=== PATIENT | male | born 1935 | race Caucasian/White ===

== ENCOUNTER → 2018-10-10 12:38 | Outpatient (CLI) | payer MEDICARE, BC, SELFPAY ==
--- NOTE | 2018-10-10 | DI.ECHO.S_ITS ---
[facility] +---------+ : : [address] : [address] [address] : : : : [id number] : : : : Phone: [phone]+ Echocardiogram Report + + :Name: RACHELLE ESTEVEZ Study Date: 10/10/2018 Height: 67 in : :[facility] Exam Location: [facility] Weight: 135 lb : : Gender: Male BSA: 1.7 m2 : :: 1935 Age: 83 yrs BP: 165/80 mmHg: :Reason For Study: Aortic valve regurgitation : :Ordering Physician: Brown : :Jess Performed By: Jane Page : + + Interpretation Summary Sinus bradycardia. Heart rate is 51-62 bpm. Normal LV size; mild-moderate concentric LVH; there is mid-inferolateral, mid inferior hypokinesis; otherwise normal wall motion throughout. EF is 55-60%. Stage I diastolic dysfunction. Moderate LA enlargement; borderline RA enlargement. Aortic valve leaflets are mildly calcified with moderate associated AI. There is mildly dilated aortic root and ascending aorta. Compared to prior study 12/20/2016 LV is no longer dilated. Otherwise no changes have occurred. Focal wall motion abnormalities are unchanged on personal review. Procedure: A two-dimensional transthoracic echocardiogram with color flow and Doppler was performed. The study quality was technically adequate. Comparison is made with the echocardiogram of 12/20/2016. The patient was in sinus bradycardia with heart rates between 51-62 bpm during the exam. The patient had occasional PVCs during the exam. Left Ventricle: There is mild-moderate concentric left ventricular hypertrophy. The left ventricle is mildly dilated. Proximal septal thickening is noted. The ejection fraction is estimated to be 55-60%. There is basal posterolateral wall hypokinesis. Diastolic parameters suggest a relaxation abnormality of the left ventricle, consistent with probable normal filling pressures. Right Ventricle: The right ventricle is mildly dilated. The right ventricular systolic function is normal. Atria: The left atrium is moderately dilated. The right atrium is borderline dilated. There is no Doppler evidence for an interatrial shunt. Mitral Valve: The mitral valve leaflets appear mildly thickened, but open well. There is mild mitral annular calcification. There is moderate mitral regurgitation. Aortic Valve: The aortic valve is trileaflet. The aortic valve is slightly calcified. The aortic valve opens well. There is moderate aortic regurgitation. Tricuspid Valve: The tricuspid valve is normal in structure and function. There is mild tricuspid regurgitation. The right ventricular systolic pressure is estimated to be at least 24 mmHg based on an estimated right atrial pressure of 3 mm Hg. Pulmonic Valve: The pulmonic valve is not well visualized. There is trace pulmonic regurgitation. Great Vessels: The aortic root is mildly dilated. The ascending aorta is mildly enlarged. The aortic arch is normal in size. The pulmonary artery is not well visualized, but is probably normal size. The IVC is of normal diameter and collapses greater than 50% with a sniff. This suggests a low right atrial pressure of 3 mm Hg. Pericardium/ Pleura There is a trivial pericardial effusion noted. There is no pleural effusion. MMode/2D Measurements & Calculations LVIDd: 5.1 cm LVOT diam: 2.4 cm LVIDs: 3.5 cm Ao root diam: 4.2 cm FS: 30.2 % asc Aorta Diam: 3.6 cm EPSS: 0.27 cm Ao Arch Diam (Prox Trans): 2.6 cm IVSd: 1.2 cm LVPWd: 1.2 cm LV shannon. diameter/BSA (cm/m^2): 3.0 LV sys. diameter/BSA (cm/m^2): 2.1 LA A2 area: 25.4 cm2 RA long axis: 5.9 cm LA A4 area: 23.0 cm2 RA area: 19.0 cm2 LA length (vol): 6.3 cm RA vol: 51.8 ml LA vol: 78.7 ml RA : 30.3 ml/m2 LA vol index: 46.0 ml/m2 Doppler Measurements & Calculations Ao V2 max: 159.2 cm/sec LVOT Max Elías: 99.1 cm/sec Ao V2 mean: 103.5 cm/sec LV V1 max P.9 mmHg Ao max P.1 mmHg LV V1 VTI: 21.4 cm Ao mean P.8 mmHg PAULETTE(I,D): 2.8 cm2 Ao V2 VTI: 33.3 cm PAULETTE(V,D): 2.7 cm2 sev ratio: 0.64 PAULETTE indexed to BSA (cm^2/m^2): 1.7 AI P1/2t: 442.9 msec AI dec slope: 346.6 cm/sec2 MV E max elías: 38.9 cm/sec TR max elías: 227.3 cm/sec MV A max elías: 68.0 cm/sec TR max P.7 mmHg MV E/A: 0.57 PA V2 max: 54.9 cm/sec Med Peak E' Elías: 2.8 cm/sec PA V2 mean: 35.1 cm/sec E/E' med: 14.0 PA mean P.56 mmHg Lat Peak E' Elías: 5.4 cm/sec E/E' lat: 7.3 E/e' average: 10.6 MV dec time: 0.15 sec MV P1/2t: 37.0 msec MV 2t max elías: 36.3 cm/sec MVA(2t): 6.0 cm2 Reading Physician:09:47 AM
== END ==
PROVIDERS: PCP Family Medicine; Visit Provider Internal Medicine Cardiovascular Disease
DX: I08.3 Combined rheumatic disorders of mitral, aortic and tricuspid valves (principal); R00.1 Bradycardia, unspecified
CPT/HCPCS: 93306

== ENCOUNTER → 2019-06-22 10:06 | Outpatient (CLI) | payer MEDICARE, BC, SELFPAY ==
--- NOTE | 2019-06-22 10:12 | DI.RAD.S_ITS ---
PROCEDURE: FL BARIUM SWALLOW INDICATIONS: esophageal spasm, regurgitating food COMPARISON: [facility], , CHEST 1 VIEW, 05/27/2016, 17:20. FINDINGS: Function: There is esophageal dysmotility with tertiary contractions and proximal escape. There is marked esophageal reflux to the level of the epiglottis. Laryngeal penetration and diana tracheal aspiration were identified. There is obstructed transit of a calibrated barium tablet which does not pass into the stomach after prolonged observation, remaining lodged within the distal esophagus/small hiatal hernia. Morphology: Air-contrast images demonstrate normal mucosal morphology. No diverticula identified. There is narrowing of the distal esophagus near the gastroesophageal junction, forming partial beaking. Limited images of the stomach demonstrate normal appearance. IMPRESSION: 1. Narrowing of the distal esophagus with obstructed transit of a calibrated barium tablet into the greater stomach (with the tablet persistently lodged within the distal esophagus/small hiatal hernia for the duration of the exam). Findings are concerning for potential achalasia or stricture. Direct observation with endoscopy may be of benefit. 2. Esophageal dysmotility with gastroesophageal reflux and a small hiatal hernia. 3. Tracheal aspiration observed with multiple swallows. Consider followup evaluation with speech pathology consultation. Dictated by: Doroteo Ramos M.D. on 06/22/2019 at 12:43 Approved by: Doroteo Ramos M.D. on 06/22/2019 at 13:08
== END ==
PROVIDERS: PCP Family Medicine; Visit Provider Family Medicine
DX: K22.4 Dyskinesia of esophagus (principal); R11.10 Vomiting, unspecified; K44.9 Diaphragmatic hernia without obstruction or gangrene
CPT/HCPCS: 74220

== ENCOUNTER → 2019-09-18 07:28 | Outpatient (CLI) | payer MEDICARE, BC, SELFPAY ==
[2019-09-18 08:12] LABS: Add Manual Diff / Slide Review NO; Basophils Absolute Auto 0 /uL (0-100); Basophils Percent Auto 0.5 % (0-2); Eosinophils Absolute Auto 100 /uL (0-450); Eosinophils Percent Auto 1.1 % (2-4); Hematocrit 43.5 % (41-53); Lymphocytes Absolute Auto 1600 /uL (1100-4500); Lymphocytes Percent Auto 33.4 % (25-40); Mean Corpuscular HGB Conc 34.5 % (30-36); Mean Corpuscular Hemoglobin 32.7 PG (26-34); Monocytes Absolute Auto 400 /uL (0-900); Neutrophils Absolute Auto 2700 /uL (1500-7000); Platelet Count 163 X10^3/uL (150-400); Red Blood Cell Count 4.57 X10^6/uL (4.5-5.9); Red Cell Distribution Width 12.7 % (11.6-14.8); White Blood Cell Count 4.8 X10^3/uL (4.5-11.0)
[2019-09-18 08:42] LABS: Alanine Aminotransferase 16 IU/L (<50); Albumin 3.9 g/dL (3.5-5.0); Albumin Globulin Ratio 1.6 (1.0-2.8); Alkaline Phosphatase 92 U/L (38-126); Aspartate Aminotransferase 27 IU/L (17-59); BUN Creatinine Ratio 18.9 (6-22); Bilirubin Total 0.8 mg/dL (0.2-1.3); Blood Urea Nitrogen 17 mg/dL (9-20); Calcium 9.4 mg/dL (8.4-10.2); Carbon Dioxide 30 mmol/L (22-32); Chloride 104 mmol/L (98-107); Cholesterol 149 mg/dL (140-199); Estimated Glomerular Filt Rate > 60.0 mL/min (>60); Globulin 2.4 g/dL (1.7-4.1); Glucose 91 mg/dL (80-110); HDL Cholesterol 84 mg/dL (40-60); HEMOLYSIS < 15 (0-50); LDL Cholesterol Calculated 49 mg/dL (<100); Potassium 4.3 mmol/L (3.4-5.1); Sodium 140 mmol/L (137-145); Total Protein 6.3 g/dL (6.3-8.2); Triglycerides 80 mg/dL (35-150)
== END ==
PROVIDERS: PCP Family Medicine; Visit Provider Family Medicine
DX: I10 Essential (primary) hypertension (principal)
CPT/HCPCS: 36415; 80053; 80061; 85025

== ENCOUNTER 2019-10-20 06:57 | Day surgery (SDC) | payer MEDICARE, BC, SELFPAY ==
[2019-10-20] MEDS: PROPARACAINE 0.5% OPHTH SOL 2 DROPS EYE-OP (07:37)
[2019-10-20 07:38] VITALS: BP 171/82; PULSE 71; RESP 15; TEMP 36.6; O2SAT 99; BMI 21.8
[2019-10-20] MEDS: CATARACT EYE COMPOUND (10 DROPS/SYRINGE) 3 DROPS EYE-OP (07:48)
--- NOTE | 2019-10-20 08:08 | PM.PREOP ---
Pre-operative Note Interval Note History & Physical reviewed/Exam performed by Physician: No Changes to H&P: No
--- NOTE | 2019-10-20 08:08 | PM.OP.1 ---
Operative Date/Time/Diagnoses Pre-op diagnosis: Nuclear cataract right eye Procedure & Clinicians Procedure: Cataract Surgery Same procedure as scheduled: Yes Surgeon: Bryon Cardona Anesthesia Type: MAC +/- and Sedation Operative Notes Procedure in detail: Patient brought to the operating suite. Tetracaine drops placed in the right eye. Patient was prepped and draped in sterile manner. Wire lid speculum was placed in the eye. Betadine drops were placed on the eye. This was irrigated. Lidocaine jelly was placed on the eye. A paracentesis port was created with a side-port blade. 0.1 mL 1% preservative free lidocaine was injected into the anterior chamber. The anterior chamber was deepened with viscoelastic. 2.6 mm keratome was used to create a temporal clear corneal incision. The pupil was floppy and miotic. A 6.25 mm malyugin ring was used to enlarge the pupil. Cystotome and Utrata forceps were used to create continuous tear capsulorrhexis. Balanced salt solution was used to hydro dissect the nucleus. The phacoemulsification handpiece was inserted and the nucleus was removed using the stop and chop technique. The irrigation aspiration handpiece was inserted and the remaining cortex was removed. Anterior chamber was deepened with viscoelastic. An Garcia ZCB00 intraocular lens with a power of 21.5 was injected into the capsular bag. The Malyugin ring was removed. Irrigation aspiration handpiece was inserted and the remaining viscoelastic was removed. Incision was hydrated with balanced salt solution and found to be leak free with pressure with Weck-Amber sponges. 0.1 mL Vigamox injected anterior chamber. 0.3 mL Kenalog 10 mg was injected subconjunctivally. Lid speculum was removed. The patient left the operating room in excellent condition. Complications: none Post-operative Condition: stable Disposition: same day surgery
[2019-10-20] MEDS: MOXIFLOXACIN INJ 5 MG/ML VIAL EYE-OP (08:33)
[2019-10-20] MEDS: PHENYLEPHRINE/LIDOCAINE VIAL (OR) 0.2 ML EYE-OP (08:33)
[2019-10-20] MEDS: TRIAMCINOLONE 50 MG/5 ML VIAL INJ (08:33)
[2019-10-20] MEDS: CHONDROIDTIN/SOD HYALURONATE 1.05 ML SYRINGE INTRAOCULA (08:34)
[2019-10-20] MEDS: LIDOCAINE JELLY 2% 5 ML 1 APPLIC TOP (08:34)
[2019-10-20] MEDS: TETRACAINE 0.5% OPHTH DROPS 4 ML 2 DROPS EYE-OP (08:34)
[2019-10-20] MEDS: BALANCED SALT IRRIG SOLN NO.2 500 ML, EPINEPHrine 1 MG IRR (08:35)
[2019-10-20 08:52] VITALS: BP 153/71; PULSE 60; RESP 16; TEMP 36.8; O2SAT 99
== END 2019-10-20 08:30 | disposition home or self-care (01) ==
PROVIDERS: PCP Family Medicine; Visit Provider Ophthalmology
PROC: (CPT 66984; principal; 2019-10-20 08:15)
DX: H25.11 Age-related nuclear cataract, right eye (principal); E78.5 Hyperlipidemia, unspecified; I25.2 Old myocardial infarction
CPT/HCPCS: 66984; J0171; J2250; J3301

== ENCOUNTER 2019-11-03 06:58 | Day surgery (SDC) | payer MEDICARE, BC, SELFPAY ==
[2019-11-03 07:42] VITALS: BP 151/74; PULSE 73; RESP 15; TEMP 36.4; O2SAT 99; BMI 21.7
[2019-11-03] MEDS: CATARACT EYE COMPOUND (10 DROPS/SYRINGE) 3 DROPS EYE-OP (07:51)
[2019-11-03] MEDS: PROPARACAINE 0.5% OPHTH SOL 2 DROPS EYE-OP (07:51)
--- NOTE | 2019-11-03 08:29 | PM.PREOP ---
Pre-operative Note Interval Note History & Physical reviewed/Exam performed by Physician: No Changes to H&P: No
--- NOTE | 2019-11-03 08:29 | PM.OP.1 ---
Operative Date/Time/Diagnoses Pre-op diagnosis: Nuclear Cataract Left eye Post-op diagnosis: same Procedure & Clinicians Surgeon: Bryon Cardona Anesthesia Type: MAC +/- and Sedation Operative Notes Procedure in detail: Patient brought to the operating suite. Tetracaine drops placed in the left eye. Patient was prepped and draped in sterile manner. Wire lid speculum was placed in the eye. Betadine drops were placed on the eye. This was irrigated. Lidocaine jelly was placed on the eye. A paracentesis port was created with a side-port blade. 0.1 mL 1% preservative free lidocaine was injected into the anterior chamber. The anterior chamber was deepened with viscoelastic. 2.6 mm keratome was used to create a temporal clear corneal incision. The pupil was floppy and miotic. A 6.25 mm Malygin ring was used to enlarge the pupil. Cystotome and Utrata forceps were used to create continuous tear capsulorrhexis. Balanced salt solution was used to hydro dissect the nucleus. The phacoemulsification handpiece was inserted and the nucleus was removed using the stop and chop technique. The irrigation aspiration handpiece was inserted and the remaining cortex was removed. Anterior chamber was deepened with viscoelastic. An Garcia ZCB00 intraocular lens with a power of 21.5 was injected into the capsular bag. The Malyugin ring was removed. Irrigation aspiration handpiece was inserted and the remaining viscoelastic was removed. Incision was hydrated with balanced salt solution and found to be leak free with pressure with Weck-Amber sponges. 0.1 mL Vigamox injected anterior chamber. 0.3 mL Kenalog 10 mg was injected subconjunctivally. Lid speculum was removed. The patient left the operating room in excellent condition. Complications: none Post-operative Condition: stable Disposition: same day surgery
[2019-11-03] MEDS: MOXIFLOXACIN INJ 5 MG/ML VIAL EYE-OP (08:41)
[2019-11-03] MEDS: LIDOCAINE JELLY 2% 5 ML 1 APPLIC TOP (08:42)
[2019-11-03] MEDS: TRIAMCINOLONE 50 MG/5 ML VIAL INJ (08:42)
[2019-11-03] MEDS: BALANCED SALT IRRIG SOLN NO.2 500 ML, EPINEPHrine 1 MG IRR (08:42)
[2019-11-03] MEDS: PHENYLEPHRINE/LIDOCAINE VIAL (OR) 0.2 ML EYE-OP (08:42)
[2019-11-03] MEDS: CHONDROIDTIN/SOD HYALURONATE 1.05 ML SYRINGE INTRAOCULA (08:43)
[2019-11-03] MEDS: TETRACAINE 0.5% OPHTH DROPS 4 ML 2 DROPS EYE-OP (08:43)
[2019-11-03 09:07] VITALS: BP 114/64; PULSE 69; RESP 15; TEMP 36.2; O2SAT 96
== END 2019-11-03 09:10 | disposition home or self-care (01) ==
PROVIDERS: PCP Family Medicine; Visit Provider Ophthalmology
PROC: (CPT 66984; principal; 2019-11-03 08:45)
DX: H25.12 Age-related nuclear cataract, left eye (principal)
CPT/HCPCS: 66984; J0171; J2250; J3301

== ENCOUNTER → 2020-07-16 13:55 | Outpatient (CLI) | payer MEDICARE, BC, SELFPAY ==
[2020-07-17 06:12] LABS: COVID19 Sendout Not Detected (Not Detect)
== END ==
PROVIDERS: PCP Family Medicine; Visit Provider Physician Assistant
DX: Z11.59 Encounter for screening for other viral diseases (principal)
CPT/HCPCS: 87635

== ENCOUNTER → 2020-07-24 09:47 | Outpatient (CLI) | payer MEDICARE, BC, SELFPAY ==
[2020-07-26 15:46] LABS: COVID19 Sendout Not Detected (Not Detect)
== END ==
PROVIDERS: PCP Family Medicine; Visit Provider Physician Assistant
DX: Z11.59 Encounter for screening for other viral diseases (principal)
CPT/HCPCS: 87635

== ENCOUNTER 2020-07-27 09:23 | Day surgery (SDC) | payer MEDICARE, BC, SELFPAY ==
[2020-07-27] VITALS (10 sets, daily range): BP systolic 103–155; BP diastolic 65–82; PULSE 61–77; RESP 12–17; TEMP 36.3–36.9; O2SAT 91–99; BMI 21.9
--- NOTE | 2020-07-27 | PATH_ITS ---
[facility] Accession Number: [id number] . 01 Material submitted: . gastrointestinal site - GASTRIC . 01 Clinical history: . A: RULE OUT HP BIOPSY GASTRIC . 01 Diagnosis: Stomach, Biopsies: Gastric antral and body mucosa with mild chronic inflammation. Negative for Helicobacter organisms by immunohistochemistry. Negative for intestinal metaplasia. Negative for dysplasia or malignancy. V 08/01/2020 1352 Local . 01 Electronically signed: . Arie Marroquin MD, PhD, Pathologist NPI- [id number] . 01 Gross description: . Received in formalin, labeled rule out HP biopsy gastric, and consists of two sauer fragments of soft tissue measuring 0.5 x 0.5 x 0.2 cm in aggregate. The specimen is entirely submitted in cassette A1. (EA/[id number]) /[facility] 07/28/2020 1046 Local . 01 Microscopic: . An immunohistochemical stain was performed to evaluate for Helicobacter organisms and is negative. The control stain showed appropriate reactivity. . * This test was developed and its performance characteristics determined by [facility]. It has not been cleared or approved by the U.S. Food and Drug Administration. The FDA has determined that such clearance or approval is not necessary. This test is used for clinical purposes. It should not be regarded as investigational or for research. . 01 Pathologist provided ICD-10: K29.70 . 01 CPT . 690311, L46339 Performed at: [address] [address], [place], [place] [id number] MD Leonel Kang MD Phone: [phone]
[2020-07-27] MEDS: SODIUM CHLORIDE 0.9% 1,000 ML 21 ML IV (10:00)
[2020-07-27] MEDS: fentaNYL 250 MCG/5 ML INJ IV (10:33)
[2020-07-27] MEDS: MIDAZOLAM 5 MG/5 ML VIAL IV (10:39)
--- NOTE | 2020-07-27 10:45 | PM.HP.1 ---
History of Present Illness History of Present Illness Date Patient Seen: 07/27/20 Chief complaint: SDC Narrative: Lower substernal dysphagia with abnormal barium swallow showing possible dilated esophagus and difficulty passing barium at the GE junction. Esophageal manometry could not pass the lower esophageal sphincter but did show 100% peristalsis ruling out achalasia. Procedure being done to rule out Schatzki's ring or stricture versus EGJ outflow obstruction which still could be present with normal peristalsis. Dilation to be performed if appropriate or Botox injection if felt to be outflow obstruction. Patient History Medical History (Updated 07/06/20 @ 09:37 by Adelaide Martinez RN) Actinic keratosis (Resolved ~1979) Chronic back pain (Chronic) Elevated PSA (Resolved 1996) GI bleeding (Chronic 1999) Heart disease (Acute) Hypertension (Chronic 1998) Measles (Resolved) Melanoma (Resolved 2011) Migraines (Chronic 1989) Prostate cancer (Resolved 1996) Surgical History (Updated 07/06/20 @ 09:37 by Adelaide Martinez RN) Anesthesia (Resolved) History of melanoma excision (Resolved 2011) History of prostate surgery (Resolved 1996) Hx of cataract surgery (Acute) Status post hernia repair (Resolved 1995) Status post hernia repair (Resolved 2004) Family & Social History Family History (Updated 08/07/18 @ 12:04 by Francesca Dawn) Brother Age: 80 Parkinson's disease Father Parkinson's disease Mother Aneurysm Social History: household members significant other Tobacco & Substance use: Smoking Status Never smoker alcohol intake current alcohol intake frequency 0-2 drinks per day Substance Use Type does not use Meds Home Medications and Allergies Home Medications Medication Instructions Recorded Confirmed Type aspirin 81 mg PO QDAY #30 ctb 06/13/16 07/27/20 History multivitamin [Multiple Vitamins] 1 tab PO QDAY #0 tab 06/13/16 07/27/20 History biotin 5,000 mcg disintegrating 5,000 mcg PO DAILY tab 09/02/19 07/27/20 History tablet cholecalciferol (vitamin D3) 50 2,000 unit PO DAILY 09/02/19 07/27/20 History mcg (2,000 unit) capsule naproxen sodium 220 mg capsule 220 mg PO DAILY PRN cap 09/02/19 07/27/20 History rosuvastatin 10 mg tablet 10 mg PO DAILY #90 tab 09/02/19 07/27/20 Rx hydrochlorothiazide 25 mg tablet 25 mg PO DAILY #90 tab 02/02/20 07/27/20 Rx Allergies Allergy/AdvReac Type Severity Reaction Status Date / Time No Known Drug Allergies Allergy Verified 07/27/20 09:38 Exam Vital Signs (past 8 hours): - 07/27/20 09:40 Temperature 98.3 F Pulse Rate 77 Respiratory Rate 16 Blood Pressure 155/82 H Pulse Oximetry 99 Oxygen Delivery Method Room Air Narrative Exam Narrative: Oropharynx free of lesions Chest clear to auscultation percussion Cardiac exam reveals no S3 or murmur Assessment & Plan Assessment & Plan narrative: Abnormal barium swallow with need to assess GE junction with possible Botox or dilation. Risks, benefits, and alternatives have been explained.
--- NOTE | 2020-07-27 10:48 | P.HP_ITS ---
History of Present Illness History of Present Illness Chief complaint: [facility] [place] Narrative: Lower substernal dysphagia with abnormal barium swallow showing possible dilated esophagus and difficulty passing barium at the GE junction. Esophageal manometry could not pass the lower esophageal sphincter but did show 100% peristalsis ruling out achalasia. Procedure being done to rule out Schatzki's ring or stricture versus EGJ outflow obstruction which still could be present with normal peristalsis. Dilation to be performed if appropriate or Botox injection if felt to be outflow obstruction. Patient History Medical History (Updated 07/06/20 @ 09:37 by Adelaide Martinez RN) Actinic keratosis (Resolved ~1979) Chronic back pain (Chronic) Elevated PSA (Resolved 1996) GI bleeding (Chronic 1999) Heart disease (Acute) Hypertension (Chronic 1998) Measles (Resolved) Melanoma (Resolved 2011) Migraines (Chronic 1989) Prostate cancer (Resolved 1996) Surgical History (Updated 07/06/20 @ 09:37 by Adelaide Martinez RN) Anesthesia (Resolved) History of melanoma excision (Resolved 2011) History of prostate surgery (Resolved 1996) Hx of cataract surgery (Acute) Status post hernia repair (Resolved 1995) Status post hernia repair (Resolved 2004) Family & Social History Family History (Updated 08/07/18 @ 12:04 by Francesca Dawn) Brother Age: 80 Parkinson's disease Father Parkinson's disease Mother Aneurysm Social History: household members significant other Tobacco & Substance use: Smoking Status Never smoker alcohol intake current alcohol intake frequency 0-2 drinks per day Substance Use Type does not use Meds Home Medications and Allergies Home Medications Medication Instructions Recorded Confirmed Type aspirin 81 mg PO QDAY #30 ctb 06/13/16 07/27/20 History multivitamin [Multiple Vitamins] 1 tab PO QDAY #0 tab 06/13/16 07/27/20 History biotin 5,000 mcg disintegrating 5,000 mcg PO DAILY tab 09/02/19 07/27/20 History tablet cholecalciferol (vitamin D3) 50 2,000 unit PO DAILY 09/02/19 07/27/20 History mcg (2,000 unit) capsule naproxen sodium 220 mg capsule 220 mg PO DAILY PRN cap 09/02/19 07/27/20 History rosuvastatin 10 mg tablet 10 mg PO DAILY #90 tab 09/02/19 07/27/20 Rx hydrochlorothiazide 25 mg tablet 25 mg PO DAILY #90 tab 02/02/20 07/27/20 Rx Allergies Allergy/AdvReac Type Severity Reaction Status Date / Time No Known Drug Allergies Allergy Verified 07/27/20 09:38 Exam Vital Signs (past 8 hours): - 07/27/20 09:40 Temperature 98.3 F Pulse Rate 77 Respiratory Rate 16 Blood Pressure 155/82 H Pulse Oximetry 99 Oxygen Delivery Method Room Air
--- NOTE | 2020-07-27 10:48 | PM.OP.ENDO ---
Operative Date/Time/Diagnoses Date of procedure: 07/27/20 Pre-op diagnosis: See indication and findings Procedure & Clinicians Study performed: EGD Same procedure as scheduled: Yes Indications: Lower substernal dysphagia with abnormal barium swallow showing possible dilated esophagus and difficulty passing barium at the GE junction. Esophageal manometry could not pass the lower esophageal sphincter but did show 100% peristalsis ruling out achalasia. Procedure being done to rule out Schatzki's ring or stricture versus EGJ outflow obstruction which still could be present with normal peristalsis. Dilation to be performed if appropriate or Botox injection if felt to be outflow obstruction. Surgeon: Gail Muñoz Procedure Notes Procedure in detail: After informed consent was obtained the patient was placed in the left lateral decubitus position. The video upper scope was placed into the oropharynx and with the patient's help swallowed into the esophagus. The esophagus stomach and duodenum were carefully examined. On withdrawal, retroflexed view of the GE junction was performed. The scope was removed. The patient tolerated procedure well. Blood loss none Complications none Sedation Total sedation time 11 minutes Fentanyl 100 mg Versed 6 mg IV titration Findings 1. GE junction with moderate Schatzki's ring present. This was he both on forward viewing and retroflexed view. There was at least 3-4 mm of space between the edge of the Schatzki's ring and the scope. On withdrawal a 48 Savary dilator was used with only minimal resistance. 2. 3 cm hiatal hernia 3. Striped gastric erythema in the antrum biopsies taken to rule out Helicobacter 4. Scattered patches of erythema throughout the duodenal bulb I think all of Mr. Slade's problems are from this Schatzki's ring. He is to be in touch with me in 2 months to let me know how he is doing. We could go up to a somewhat larger size either 51/54 should he continue have problems.
== END 2020-07-27 12:20 | disposition home or self-care (01) ==
PROVIDERS: PCP Family Medicine; Referring Provider Family Medicine; Visit Provider Internal Medicine Gastroenterology
PROC: 0DJ08ZZ Inspection of Upper Intestinal Tract, Via Natural or Artificial Opening Endoscopic (ICD-10-PCS; CPT 43235; principal; 2020-07-27 10:30)
DX: K29.50 Unspecified chronic gastritis without bleeding (principal); K22.2 Esophageal obstruction; K44.9 Diaphragmatic hernia without obstruction or gangrene; I10 Essential (primary) hypertension
CPT/HCPCS: 43248; 43239; J2250; J3010

== ENCOUNTER → 2020-08-01 13:33 | Outpatient (CLI) | payer MEDICARE, BC, SELFPAY ==
--- NOTE | 2020-08-01 13:52 | DI.ECHO.S_ITS ---
Echocardiogram Report + + :Name: RACHELLE ESTEVEZ Study Date: 08/01/2020 Height: 66 in : :[facility] Weight: 140 lb : : Gender: Male BSA: 1.7 m2 : :: 1935 Age: 85 yrs BP: 152/88 mmHg: :Reason For Study: DYSPNEA : :Ordering Physician: ROYER, : :RUBÉN Performed By: Negra Dotson : :Referring: RUBÉN LINTON : + + Interpretation Summary Normal sinus rhythm. Normal LV size; mild concentric LVH. There is basal inferolateral akinesis; mid-inferolateral and mid-inferior hypokinesis. Otherwise normal wall motion and LV systolic function. EF is 50-55%. Normal chamber sizes. Aortic valve leaflets are mildly calcified with moderate eccentric associated AI. Pressure half time is 350 msec. Otherwise no significatn valvular abnormalities. Comapred to prior study 10/10/2018 focal wall motion abnormalities in PDA distribution are unchanged. AI is slightly worse Procedure: A two-dimensional transthoracic echocardiogram with color flow and Doppler was performed. The study quality was technically adequate. Comparison is made with the echocardiogram of 10/10/2018. The heart rate ranged between 64-73 bpm during the study. Left Ventricle: The left ventricle is normal in size. There is mild concentric left ventricular hypertrophy. The ejection fraction is estimated to be 50-55%. Diastolic function could not be accurately assessed due to unobtainable data. Right Ventricle: The right ventricle is normal in size and function. Atria: Both atria are normal in size. There is no Doppler evidence for an interatrial shunt. Mitral Valve: The mitral valve is normal in structure and function. There is mild mitral regurgitation. Aortic Valve: The aortic valve is trileaflet. The aortic valve opens well. The aortic valve is slightly calcified. There is no aortic valve stenosis. There is moderate aortic regurgitation. Tricuspid Valve: The tricuspid valve is normal in structure and function. The right ventricular systolic pressure is estimated to be at least 27 mmHg based on an estimated right atrial pressure of 3 mm Hg. There is mild tricuspid regurgitation. Pulmonic Valve: The pulmonic valve leaflets are thin and pliable; valve motion is normal. There is mild pulmonic regurgitation. Great Vessels: The aortic root is normal size. The ascending aorta is mildly enlarged. The IVC is of normal diameter and collapses greater than 50% with a sniff. This suggests a low right atrial pressure of 3 mm Hg. Pericardium/ Pleura There is no pericardial effusion. There is no pleural effusion. MMode/2D Measurements & Calculations LVIDd: 5.3 cm LVOT diam: 2.2 cm LVIDs: 3.9 cm Ao root diam: 3.8 cm FS: 26.0 % asc Aorta Diam: 3.9 cm EPSS: 0.92 cm Ao Arch Diam (Prox Trans): 2.5 cm IVSd: 1.2 cm LVPWd: 1.0 cm LV shannon. diameter/BSA (cm/m^2): 3.1 LV sys. diameter/BSA (cm/m^2): 2.3 LA A2 area: 17.5 cm2 RA long axis: 5.1 cm LA A4 area: 16.2 cm2 RA area: 13.6 cm2 LA length (vol): 5.5 cm RA vol: 30.5 ml LA vol: 43.4 ml RA : 17.7 ml/m2 LA vol index: 25.2 ml/m2 IVC diam: 1.2 cm RVD1 (basal): 2.7 cm TAPSE: 1.8 cm Doppler Measurements & Calculations Ao V2 max: 172.4 cm/sec LVOT Max Elías: 118.3 cm/sec Ao V2 mean: 104.4 cm/sec LV V1 max P.6 mmHg Ao max P.9 mmHg LV V1 VTI: 20.7 cm Ao mean P.2 mmHg PAULETTE(I,D): 2.8 cm2 Ao V2 VTI: 28.6 cm PAULETTE(V,D): 2.7 cm2 sev ratio: 0.72 PAULETTE indexed to BSA (cm^2/m^2): 1.6 Med Peak E' Elías: 2.8 cm/sec TR max elías: 245.8 cm/sec Lat Peak E' Elías: 3.2 cm/sec TR max P.4 mmHg PA pr(Accel): 25.9 mmHg SV(LVOT): 80.4 ml Electronically signed by: Lani Navas M.D. on Reading Physician:08/03/2020 01:14 AM
== END ==
PROVIDERS: PCP Family Medicine; Referring Provider Family Medicine; Visit Provider Hospitalist
DX: I08.3 Combined rheumatic disorders of mitral, aortic and tricuspid valves (principal); I77.89 Other specified disorders of arteries and arterioles; R06.09 Other forms of dyspnea
CPT/HCPCS: 93306

== ENCOUNTER 2020-08-02 13:41 | Emergency (ER) | payer MEDICARE, BC, SELFPAY ==
[2020-08-02 13:43] VITALS: BP 155/71; PULSE 95; RESP 20; TEMP 37.1; O2SAT 98
--- NOTE | 2020-08-02 16:14 | DI.RAD.S_ITS ---
PROCEDURE: XR LUMBAR SPINE 2-3V INDICATIONS: low back pain bilateral TECHNIQUE: 3 views of the lumbar spine were acquired. COMPARISON: None. FINDINGS: Bones: No fracture. Multilevel degenerative endplate sclerosis and spurring. Diffuse facet arthropathy. Moderate to severe L2-L3 disc space narrowing. Severe L1-L2 disc space narrowing. Severe lower thoracic disc space narrowing. Levoscoliosis partially visualized. Soft tissues: Overlying bowel gas pattern is normal. No suspicious soft tissue calcifications. 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 Dictated by: Kael Meza M.D. on 08/02/2020 at 17:04 Approved by: Kael Meza M.D. on 08/02/2020 at 17:05
[2020-08-02] MEDS: LIDOCAINE PATCH 1 EACH ADH..PATCH TOP (16:27)
[2020-08-02] MEDS: ACETAMINOPHEN 325 MG TABLET 650 MG PO (16:28)
[2020-08-02] MEDS: CYCLOBENZAPRINE 10 MG TABLET PO (16:28)
[2020-08-02] MEDS: IBUPROFEN 400 MG TABLET PO (16:28)
[2020-08-02 17:04] VITALS: BP 139/74; PULSE 88; RESP 16; O2SAT 98
--- NOTE | 2020-08-03 01:51 | ED.BACK ---
HPI - Back Pain/Injury <YONATAN Jordan - Last Filed: 08/03/20 02:09> General Chief Complaint: Back Pain/Injury Stated Complaint: LOW BACK PAIN Time Seen by Provider: 08/02/20 15:22 Source: patient Mode of arrival: Wheelchair Limitations: no limitations History of Present Illness HPI Narrative: This is a 85-year-old male, nonsmoker, who has history of hypertension and hyperlipidemia and back pain presents to ED with significant other with chief complain of bilateral low back pain. Patient reports he had manometry test done for esophageal spasm on 07/19/2020 that was followed by endoscopy on 07/27/20 and echocardiogram done yesterday. Patient reports after the endoscopy, he had left rib cage discomfort radiating to back and he had taken Tylenol and Advil for it with some improvement. Since last night the developed severe bilateral low back pain. Patient had back pain in the past and had physical therapy. Patient reports he is usually very active. Patient denies fever, nausea or vomiting but some chills with pain. Patient denies chest pain, short of breath, incontinence for stools or bladder, perineal numbness. Patient reports pain increases with movement, ambulation, rotation of his upper body. Patient had taken Tylenol 500 mg last dose this morning and 200 mg Advil yesterday. Related Data Home Medications Medication Instructions Recorded Confirmed aspirin 81 mg PO QDAY #30 ctb 06/13/16 07/27/20 multivitamin [Multiple Vitamins] 1 tab PO QDAY #0 tab 06/13/16 07/27/20 biotin 5,000 mcg disintegrating 5,000 mcg PO DAILY tab 09/02/19 07/27/20 tablet cholecalciferol (vitamin D3) 50 2,000 unit PO DAILY 09/02/19 07/27/20 mcg (2,000 unit) capsule naproxen sodium 220 mg capsule 220 mg PO DAILY PRN cap 09/02/19 07/27/20 Previous Rx's Medication Instructions Recorded rosuvastatin 10 mg tablet 10 mg PO DAILY #90 tab 09/02/19 hydrochlorothiazide 25 mg tablet 25 mg PO DAILY #90 tab 02/02/20 cyclobenzaprine 10 mg PO BID PRN #14 tab 08/02/20 hydrocodone-acetaminophen [[place]] 1 tab PO Q8H PRN #10 tab 08/02/20 lidocaine 1 patch TOP DAILY #30 each 08/02/20 Allergies Allergy/AdvReac Type Severity Reaction Status Date / Time No Known Drug Allergies Allergy Verified 08/02/20 13:48 Review of Systems <YONATAN Jordan - Last Filed: 08/03/20 02:09> Review of Systems Narrative: General: Denies fever, chills, fatigue, malaise, sweats. HEENT: Denies sinus pain, ear pain, sore throat, difficulty swallowing, dizziness. Respiratory: Denies dyspnea, cough, wheezing, hemoptysis, sputum. Cardiovascular: Denies chest pain, palpitations, orthopnea, edema. Gastrointestinal: Denies nausea, vomiting, abdominal pain, diarrhea, constipation, melena. : Denies dysuria, frequency, incontinence, hematuria, urinary retention. Musculoskeletal: See HPI Skin: Denies rash, skin lesions, or other. Neurologic: Denies weakness, headache, numbness, change in speech, confusion, seizures, incoordination. Psychiatric: No concerning psychosocial issues. 12-point review of systems is negative except for those stated above. Patient History <YONATAN Jordan - Last Filed: 08/03/20 02:09> Medical History Actinic keratosis (Resolved ~1979) Chronic back pain (Chronic) Elevated PSA (Resolved 1996) GI bleeding (Chronic 1999) Heart disease (Acute) Hypertension (Chronic 1998) Measles (Resolved) Melanoma (Resolved 2011) Migraines (Chronic 1989) Prostate cancer (Resolved 1996) Surgical History Anesthesia (Resolved) History of melanoma excision (Resolved 2011) History of prostate surgery (Resolved 1996) Hx of cataract surgery (Acute) Status post hernia repair (Resolved 1995) Status post hernia repair (Resolved 2004) Family History Brother Age: 80 Parkinson's disease Father Parkinson's disease Mother Aneurysm Social History marital status: unknown household members: significant other occupational status: previously employed Smoking Status: Never smoker alcohol intake: current substance use type: does not use Smoking Status: Never smoker alcohol intake frequency: 0-2 drinks per day Substance Use Type: does not use Exam <YONATAN Jordan - Last Filed: 08/03/20 02:09> Narrative Exam Narrative: GEN: Alert, oriented x 3, well appearing and nourished, and in moderate discomfort Head: Normal cephalic, atraumatic. No scalp or temporal tenderness, palpable mass or rash. EYES: Pupils are equal, round, and reactive to light and accommodation. Extraocular muscles are intact bilaterally. There is no subconjunctival hemorrhage, exudate and sclera non-icteric. ENT: Hearing grossly intact. Nose without bleeding, purulent discharge. Airway patent. Neck: Trachea in midline. No JVD, non-tender without lymphadenopathy. No masses or thyroid megaly. Supple, non-tender and no meningeal signs. CARDIAC: Normal regular rate and rhythm without murmurs, gallops, or rubs. No chest wall tenderness. No peripheral edema, cyanosis or pallor. Capillary refill is less than 2 seconds. RESPIRATORY: Lungs are clear to auscultate bilaterally. No cough, wheezes, rales, or rhonchi. No stridor, respiratory distress, increase work of breathing, or accessary muscle used. ABD: Abdomen soft, nontender and non-distended. No guarding or rebound tenderness to palpate. Bowel sounds are normal in all 4 quadrants. There is no palpable masses or organomegaly. EXT: Full painless ROM of all extremities with no loss of sensation, strength, effusion or edema. SKIN: Warm, dry, normal color for patient. No erythema, lesions or rash on the back or over other visible areas NEUROLOGICAL: Alert and oriented to place, time and person. Sensation and motor function intact bilaterally. No facial droops, dysphasia. PSYCHIATRIC: Good judgement and reason, without hallucinations, abnormal affect or abnormal behaviors during the examination. Patient is not suicidal. Initial Vital Signs Initial Vital Signs: Vital Signs Temperature 98.8 F 08/02/20 13:43 Pulse Rate 95 H 08/02/20 13:43 Respiratory Rate 20 08/02/20 13:43 Blood Pressure 155/71 H 08/02/20 13:43 Pulse Oximetry 98 08/02/20 13:43 Back/Spine/Pelvis Cervical Spine: cervical ROM normal Thoracic/Lumbar Spine: No mass, pain with thoraco-lumbar ROM, paraspinal tenderness, thoraco-lumbar ROM limited, No thoracic spinal tenderness, No lumbar spinal tenderness and straight leg raise positive <[place] Jason MD - Last Filed: 08/03/20 18:32> Initial Vital Signs Initial Vital Signs: Vital Signs Temperature 98.8 F 08/02/20 13:43 Pulse Rate 95 H 08/02/20 13:43 Respiratory Rate 20 08/02/20 13:43 Blood Pressure 155/71 H 08/02/20 13:43 Pulse Oximetry 98 08/02/20 13:43 Scores <YONATAN Jordan - Last Filed: 08/03/20 02:09> GCS Jessica coma scale eye opening: Spontaneous Sunol coma scale verbal response: Orientated Sunol coma scale motor response: Obey commands Jessica coma scale total score: 15 qSOFA Altered Mental Status (GCS <15): No Respiratory rate greater than/equal to 22: No Systolic blood pressure less than or equal to 100: No qSOFA Total: 0 0-1 Not High Risk 1-3 High risk Course <YONATAN Jordan - Last Filed: 08/03/20 02:09> Orders Ordered: Discontinued Medications Acetaminophen (Tylenol) 650 mg PO NOW ONE Stop: 08/02/20 16:15 Last Admin: 08/02/20 16:28 Dose: 650 mg Documented by: MALENA Cyclobenzaprine HCl (Flexeril) 10 mg PO NOW ONE Stop: 08/02/20 16:15 Last Admin: 08/02/20 16:28 Dose: 10 mg Documented by: MALENA Ibuprofen (Advil) 400 mg PO NOW ONE Stop: 08/02/20 16:15 Last Admin: 08/02/20 16:28 Dose: 400 mg Documented by: MALENA Lidocaine (Lidoderm) 1 each TOP NOW ONE Stop: 08/02/20 16:15 Last Admin: 08/02/20 16:27 Dose: 1 each Documented by: MALENA <[place] Jason MD - Last Filed: 08/03/20 18:32> Orders Ordered: Discontinued Medications Acetaminophen (Tylenol) 650 mg PO NOW ONE Stop: 08/02/20 16:15 Last Admin: 08/02/20 16:28 Dose: 650 mg Documented by: MALENA Cyclobenzaprine HCl (Flexeril) 10 mg PO NOW ONE Stop: 08/02/20 16:15 Last Admin: 08/02/20 16:28 Dose: 10 mg Documented by: MALENA Ibuprofen (Advil) 400 mg PO NOW ONE Stop: 08/02/20 16:15 Last Admin: 08/02/20 16:28 Dose: 400 mg Documented by: MALENA Lidocaine (Lidoderm) 1 each TOP NOW ONE Stop: 08/02/20 16:15 Last Admin: 08/02/20 16:27 Dose: 1 each Documented by: MALENA [facility] - Back Pain/Injury <YONATAN Jordan - Last Filed: 08/03/20 02:09> Differential Diagnosis Differential diagnosis: Likely strain of lumbar region, renal colic, pyelonephritis, discitis and other (Compression fracture) Medical Records Attestation: I reviewed the patient's medical records. Lab Data Attestation: I reviewed the patient's lab results. Labs: Urine Dip Bedside Urine Glucose Negative Bedside Urine Bilirubin + 1 Bedside Urine Ketone +/- 5 Urine Specific Nash 1.020 Bedside Urine Occult Blood - Negative Bedside Urine pH 6.0 Bedside Urine Protein +/- 15 Bedside Urine Urobilinogen +/- 1mg Bedside Urine Nitrite - Negative Bedside Urine Leukocytes - Negative Esterase ECG Data Interpretation: [address] [address] XRay Report Signed Patient: Bebeto Slade FMR#: [id number] : 7Acct:[id number] Age/Sex: 85 / MDate of Service: 08/02/20 Loc: ED Accession Number: [id number] Procedure: XR lumbar spine 2-3V Ordering Provider: Herminio Mai PROCEDURE: XR LUMBAR SPINE 2-3V INDICATIONS: low back pain bilateral TECHNIQUE: 3 views of the lumbar spine were acquired. COMPARISON: None. FINDINGS: Bones: No fracture. Multilevel degenerative endplate sclerosis and spurring. Diffuse facet arthropathy. Moderate to severe L2-L3 disc space narrowing. Severe L1-L2 disc space narrowing. Severe lower thoracic disc space narrowing. Levoscoliosis partially visualized. Soft tissues: Overlying bowel gas pattern is normal. No suspicious soft tissue calcifications. 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 Dictated by: Kael Meza M.D. on 08/02/2020 at 17:04 Approved by: Kael Meza M.D. on 08/02/2020 at 17:05 [facility] Narrative Medical decision making narrative: 85-year-old male who has chronic back pain presents to with severe low back pain after he had recent and manometry test, endoscopy and echocardiogram this month before pain started. Patient reports pain increase with with movements, ambulation, and palpation on lumbar paraspinous region. Patient was medicated with lidocaine patch, Flexeril, Tylenol and ibuprofen in ED which improved pain slightly. Urine test was negative for infection or occult hematuria. Patient's advanced age and thin appearance, x-ray test was done to rule out compression fracture. X-ray test does not show fractures. However severe multilevel lumbar and lower thoracic spondylosis and facet arthropathy. Overlying bowel gas pattern was normal. Patient was able to take few steps with a walker in stable gait. Patient discharged to home with Flexeril, [place], lidocaine patch and advised to use [id number] Tylenol or Motrin. Narcotic and muscle relaxant medication precautions were discussed with the patient. Return precautions were discussed with patient and patient verbalized understanding and in agreement with treatment plan. <[place] Jason MD - Last Filed: 08/03/20 18:32> Lab Data Labs: Urine Dip Bedside Urine Glucose Negative Bedside Urine Bilirubin + 1 Bedside Urine Ketone +/- 5 Urine Specific Nash 1.020 Bedside Urine Occult Blood - Negative Bedside Urine pH 6.0 Bedside Urine Protein +/- 15 Bedside Urine Urobilinogen +/- 1mg Bedside Urine Nitrite - Negative Bedside Urine Leukocytes - Negative Esterase Discharge Plan Departure Patient Disposition: Home Clinical Impression: Low back pain Qualifiers: Chronicity: unspecified Back pain laterality: bilateral Sciatica presence: without sciatica Qualified Code(s): M54.5 - Low back pain Discharge Date/Time: 08/02/20 18:26 Instructions: DI for Low Back Pain Activity Restrictions/Additional Instructions: You have been diagnosed with [ low back pain. Lumbar xray test does not show fractures. It appears to be severe multilevel lumbar and lower thoracic spondylosis/degenerative arthritis]. What to do: *Take your medications as directed. Please use [id number] Tylenol 650-1000 mg as needed for pain up to 3 to 4 times a day. Ibuprofen 400 mg up to 3 times a day as needed for pain with food to decrease GI irritation. Flexeril for muscle relaxant as needed. Lidocaine patch stays on for 12 hours and off for 12 hours you can use it on affected site topically. 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 [place] is narcotic pain medication. Can cause constipation, drowsiness so please take precautions. Do not drive, drink alcohol, or operate heavy equipments while your on this medication. Use stool softener [id number] while your taking [place]. Please use a walker for support. Please avoid mixing Flexeril and [place] together since this can cause increase in sedation. These 3 medication have been transmitted to [email or web address]. *Follow up with your primary care provider in 2-3 days, call for an appointment. Let them know you were seen in the ED and that we asked you to be seen in follow up. You may need a referral to physical therapist or further imaging test. *Return to ED if you have any new, worsening, or concerning symptoms, such as [increasing pain, weakness to lower extremities, incontinence for stool or bladder function, fever, numbness to groin region, rash on her back, or any acute concerns]. Prescriptions: New lidocaine 5 % adhesive patch,medicated 1 patch TOP DAILY Qty: 30 RF: 0 cyclobenzaprine 10 mg tablet 10 mg PO BID PRN (Reason: muscle spasm) Qty: 14 RF: 0 hydrocodone-acetaminophen [[place]] 5-325 mg tablet 1 tab PO Q8H PRN (Reason: pain) Qty: 10 RF: 0 No Action aspirin 81 MG tablet,chewable 81 mg PO QDAY Qty: 30 RF: 0 multivitamin [Multiple Vitamins] 1 EACH tablet 1 tab PO QDAY Qty: 0 RF: 0 hydrochlorothiazide 25 mg tablet 25 mg PO DAILY Qty: 90 RF: 0 cholecalciferol (vitamin D3) 2,000 unit capsule 2,000 unit PO DAILY RF: 0 naproxen sodium [Aleve] 220 mg capsule 220 mg PO DAILY PRN (Reason: Pain (Scale Score 1-3)) RF: 0 biotin 5,000 mcg tablet,disintegrating 5,000 mcg PO DAILY RF: 0 rosuvastatin 10 mg tablet 10 mg PO DAILY Qty: 90 RF: 3 Referrals: Ankur Kyle MD [Primary Care Provider] - <[place] Jason MD - Last Filed: 08/03/20 18:32> Cosign ED Attending Cosignature Attestation: I was immediately available in the department for consultation throughout this patient's visit. I agree with documentation as above. [place] Jason MD
== END 2020-08-02 18:26 | disposition home or self-care (01) ==
PROVIDERS: Emergency Provider Nurse Practitioner Family; PCP Family Medicine
DX: M54.5 Low back pain (principal)
CPT/HCPCS: 72100; 81003; 99283

== ENCOUNTER → 2020-08-11 06:40 | Outpatient (CLI) | payer MEDICARE, BC, SELFPAY ==
--- NOTE | 2020-08-11 06:42 | DI.MRI.S_ITS ---
PROCEDURE: MR LUMBAR SPINE WO CON INDICATIONS: severe lumbar pain TECHNIQUE: Noncontrast sagittal T1 spin echo and T2 fast echo, sagittal STIR, axial T1 and T2 fast spin echo through the lumbar spine. In cases with scoliosis, additional coronal T2 fast spin echo may be performed. COMPARISON: None. FINDINGS: Image quality: Excellent. Alignment and Curvature: Levoscoliosis. Grade 1 anterolisthesis of L1 on L2 and T12 on L1. Hypoplastic S1-S2 disc space is noted. Please see the montage image for clarification of the spinal segmental level nomenclature used in this report and prior to any intervention. Bone Marrow: No fracture. Multilevel degenerative endplate sclerosis and spurring. Diffuse facet arthropathy. Widespread loss of the normal fat signal on T1 weighted pulse sequences suggestive of severe chronic anemia although other diffuse marrow infiltrative processes cannot be excluded. Spinal Cord: Conus medullaris terminates at the L2 level. Visualized cord demonstrates normal signal and size. Paraspinous Soft Tissues: No paravertebral masses. There is nonspecific, dependent posterior subcutaneous soft tissue edema from level of L3-sacrum L1-L2: Mild canal narrowing. Lateral recesses appear grossly patent. Mild right foraminal narrowing. Severe left foraminal stenosis with slight nerve root compression. L2-L3: Dorsal epidural lipomatosis noted. Mild canal narrowing. Partial effacement of both lateral recesses with bilaterally symmetric appearance. Mild right foraminal narrowing. Mild to moderate left foraminal stenosis. L3-L4: Minimal canal narrowing. Partial effacement of both lateral recesses with bilaterally symmetric appearance. Mild left foraminal stenosis, and minimal right foraminal narrowing. L4-L5: Posterior annular fissure. Minimal canal narrowing. Partial effacement of both lateral recesses with bilaterally symmetric appearance. Mild bilateral foraminal stenosis. L5-S1: Posterior annular fissure. No high-grade canal stenosis. Partial effacement of both lateral recesses with bilaterally symmetric appearance. Moderate to severe left foraminal stenosis with slight nerve root compression. Mild right foraminal narrowing. IMPRESSION: Levoscoliosis and multilevel lumbar spondylosis and facet arthropathy as above. No high-grade canal stenosis Numerous diffuse bilateral foraminal stenoses as detailed above by spinal level. Dictated by: Kael Meza M.D. on 08/11/2020 at 8:21 Approved by: Kael Meza M.D. on 08/11/2020 at 8:30
--- NOTE | 2020-08-25 10:11 | ONC.MSW ---
Description: New Referral Navigation T/C Reason for Referral: Hx Prostate Cancer-Rising PSA Activity: Called pt to confirm that we've received his referral, assessed medical status and immediate needs, and briefly explained the ongoing availability of assistance, support, and resource referrals as needed. Pt's [facility] is coming from [facility], Dr. Childs, after pt sought more aggressive pain management for worsening lower back pain. Pt is in so much pain that his functioning has been reduced from active to wheelchair/walker dependent for mobility. Confirmed an urgent appt. time for next , 09/01 at 3:40pm.
== END ==
PROVIDERS: PCP Family Medicine; Referring Provider Family Medicine; Visit Provider Family Medicine
DX: M47.26 Other spondylosis with radiculopathy, lumbar region (principal); M48.061 Spinal stenosis, lumbar region without neurogenic claudication; M48.07 Spinal stenosis, lumbosacral region; M41.9 Scoliosis, unspecified
CPT/HCPCS: 72148

== ENCOUNTER → 2020-08-22 17:01 | Outpatient (CLI) | payer MEDICARE, BC, SELFPAY ==
[2020-08-22 17:30] LABS: Add Manual Diff / Slide Review NO; Basophils Absolute Auto 0 /uL (0-100); Basophils Percent Auto 0.3 % (0-2); Eosinophils Absolute Auto 100 /uL (0-450); Eosinophils Percent Auto 0.5 % (2-4); Hematocrit 38.6 % (41-53); Hemoglobin 13.3 g/dL (13.5-17.5); Lymphocytes Absolute Auto 1300 /uL (1100-4500); Lymphocytes Percent Auto 12.3 % (25-40); Mean Corpuscular HGB Conc 34.4 % (30-36); Mean Corpuscular Hemoglobin 32.1 PG (26-34); Mean Corpuscular Volume 93.3 fL (80-100); Monocytes Absolute Auto 1000 /uL (0-900); Monocytes Percent Auto 9.9 % (3-14); Neutrophils Absolute Auto 8100 /uL (1500-7000); Platelet Count 262 X10^3/uL (150-400); Red Blood Cell Count 4.14 X10^6/uL (4.5-5.9); Red Cell Distribution Width 12.5 % (11.6-14.8); White Blood Cell Count 10.5 X10^3/uL (4.5-11.0)
[2020-08-22 17:46] LABS: BUN Creatinine Ratio 21.9 (6-22); Blood Urea Nitrogen 16 mg/dL (9-20); Calcium 9.1 mg/dL (8.4-10.2); Carbon Dioxide 30 mmol/L (22-32); Chloride 94 mmol/L (98-107); Estimated Glomerular Filt Rate > 60.0 mL/min (>60); Glucose 98 mg/dL (80-110); HEMOLYSIS < 15 (0-50); Potassium 4.3 mmol/L (3.4-5.1); Sodium 130 mmol/L (137-145)
[2020-08-22 17:56] LABS: Erythrocyte Sedimentation Rate 40 MM/HR (0-15)
[2020-08-22 18:16] LABS: Prostate Specific Antigen 60.7 ng/mL (0.10-4.00)
== END ==
PROVIDERS: PCP Family Medicine; Referring Provider Physical Medicine & Rehabilitation; Visit Provider Physical Medicine & Rehabilitation
DX: M46.46 Discitis, unspecified, lumbar region (principal); M47.816 Spondylosis without myelopathy or radiculopathy, lumbar region; Z85.46 Personal history of malignant neoplasm of prostate
CPT/HCPCS: 36415; 80048; 84153; 85025; 85651; 86140; 99215

== ENCOUNTER → 2020-08-29 10:21 | Outpatient (CLI) | payer MEDICARE, BC, SELFPAY ==
--- NOTE | 2020-08-29 10:23 | DI.NM.S_ITS ---
PROCEDURE: CT BONE SCAN WHOLE BODY RADIOPHARMACEUTICAL: 19.6 mCi Tc-99m MDP IV. INDICATIONS: History of prostate CA, possible L5-S1 discitis, L3 soft TECHNIQUE: Delayed whole-body scintigrams were obtained approximately 3-4 hours after intravenous injection of radiotracer. Anterior and posterior views were acquired from vertex to feet. Additional left and right oblique views of the thoracolumbar spine were obtained. COMPARISON: [facility], , MR LUMBAR SPINE WO CON, 08/11/2020, 7:01. [facility], CT, BONE SCAN WHOLE BODY, 08/10/2011, 8:28. FINDINGS: Spinal tracer activity is seen at the level of T10, T12-L1 and L5-S1. This could be discogenic or facet arthropathy in nature given the appearance of the recent MRI lumbar spine dated 08/11/20. Bilateral arthritic tracer activity seen in both hands and shoulders. Physiologic tracer uptake is seen in the kidneys and bladder. Lower cervical spine degenerative tracer activity. IMPRESSION: Multi level thoracic and lumbar spine tracer activity which probably degenerative in nature given the appearance of the recent MRI lumbar spine dated 08/11/20. Overall, no suspicious tracer activity. Dictated by: Kael Meza M.D. on 08/29/2020 at 14:37 Approved by: Kael Meza M.D. on 08/29/2020 at 14:43
== END ==
PROVIDERS: PCP Family Medicine; Referring Provider Physical Medicine & Rehabilitation; Visit Provider Physical Medicine & Rehabilitation
DX: M54.5 Low back pain (principal); Z85.46 Personal history of malignant neoplasm of prostate
CPT/HCPCS: 78306; A9503

== ENCOUNTER → 2020-09-13 13:53 | Outpatient (CLI) | payer MEDICARE, BC, SELFPAY ==
--- NOTE | 2020-09-13 14:02 | DI.MRI.S_ITS ---
PROCEDURE: MR PELIS WO/W CON INDICATIONS: History of prostate cancer, increased PSA, severe LBP TECHNIQUE: Noncontrast coronal T1 spin echo and STIR, sagittal T1 spin echo with fat saturation and STIR, axial T1 spin echo and T2 fast spin echo with fat saturation. After the administration of contrast, axial/sagittal/coronal T1 spin echo with fat saturation through the pelvis. COMPARISON: [facility], MR, MR LUMBAR SPINE WO CON, 08/11/2020, 7:01. [facility], NM, NM BONE SCAN WHOLE BODY, 08/29/2020, 13:36. FINDINGS: Image quality: Excellent. Bones: The visualized bone marrow demonstrates normal signal on all sequences except at L5-S1 where there is generalized marrow edema and contrast enhancement including involvement by the disc space between. This edema pattern has transited into the immediate adjacent paravertebral soft tissues. This is best seen on the coronal imaging postcontrast series 34, image 76 and on the sagittal postcontrast imaging series 35, image 26. The overlying cortex appears intact. No abnormal intraosseous enhancement. Soft tissues: No soft tissue masses are visualized. Metal artifact from the radiation therapy seed implants obscure visualization in area at and immediately adjacent to the prostate gland The scanned muscles demonstrate normal overall bulk and internal signal. Subcutaneous tissues appear normal as well. No abnormal soft tissue enhancement. IMPRESSION: As discussed above the dominant concern of this examination is diffuse marrow space enhancement with a small degree of paravertebral edema and enhancement involving L5 and S1 and the intervening L5-S1 disc space. This appearance is worrisome for an early manifestation of discitis and osteomyelitis rather than marrow space metastatic disease. There is no visualized evidence of epidural or paravertebral abscess formation at this time. No adenopathy is found. The area immediately adjacent to the prostate and within the prostate itself is poorly seen due to metal artifact locally present related to radiation therapy seed implants. Findings called to and discussed with Dr. Villanueva at time of this dictation. Transpedicle marrow space sampling for osteomyelitis utilizing interventional radiology may be warranted as the next step. Dictated by: João Scherer M.D. on 09/13/2020 at 17:13 Approved by: João Scherer M.D. on 09/13/2020 at 17:59
--- NOTE | 2020-09-13 14:55 | DI.CT.S_ITS ---
PROCEDURE: CT CHEST ABD PEL W CON INDICATIONS: History of prostate cancer, increased PSA, severe LBP TECHNIQUE: After the administration of oral and intravenous contrast, 5 mm thick sections acquired from the lung apices to the symphysis. 5 mm coronal and sagittal reformats were performed, with additional 7 mm coronal MIP reformats through the lungs. For radiation dose reduction, the following was used: automated exposure control, adjustment of mA and/or kV according to patient size. COMPARISON: [facility], MR, MR LUMBAR SPINE WO CON, 08/11/2020, 7:01. [facility], NM, NM BONE SCAN WHOLE BODY, 08/29/2020, 13:36. FINDINGS: Image quality: Excellent. CHEST: Lungs and pleura: No acute airspace opacities. No pleural effusions or pneumothorax. Central and peripheral airways appear patent and normal in caliber. Mediastinum: Heart size is normal. No pericardial effusion. No mediastinal or hilar adenopathy by size criteria. Thoracic aorta and central pulmonary arteries are normal in size. Esophagus is normal in caliber. No hiatal hernia. Chest wall: No axillary or supraclavicular adenopathy by size criteria. Thyroid gland appears normal where well seen. ABDOMEN: Solid organs: Liver is normal in size and enhancement. Gallbladder appears normal . Biliary system is non dilated. Pancreas enhances normally. Spleen is normal in size and enhancement. No adrenal nodules. Kidneys demonstrate normal size and enhancement, without hydronephrosis. Peritoneum and bowel: Bowel loops demonstrate normal wall thickness and caliber. No free fluid or air. Nodes and vessels: No retroperitoneal or mesenteric adenopathy by size criteria. Aorta and inferior vena cava are normal in size. Miscellaneous: No ventral hernias. PELVIS: Genitourinary: Bladder wall thickness is normal. Miscellaneous: No inguinal hernias or adenopathy. Radiation therapy seed implants at the prostate gland are present. No mass lesion or adenopathy in this area is seen that would indicate likelihood of recurrent primary neoplasm at the low prostate. Bones: Degenerative disc disease is present that is moderate in overall severity along the thoracic and lumbosacral spine and most severe at L5-S1 where what appears to be Schmorl's node involving the inferior endplate of L5 and the superior endplate of L1. This area had shown a prominent degree of edema and enhancement on prior MR scanning recently performed 08/11/20. No vertebral body compression fractures. IMPRESSION: 1. A pattern of definite prostate carcinoma metastasis is not found. 2. Degenerative changes along the lumbosacral spine are moderate in severity overall and most prominent at the lumbosacral junction at L5-S1, where disc height reduction and what appears to be several Schmorl's nodes are present in an area of showing prominent marrow space edema and degenerative change with contrast enhancement on recent prior LS spine MR scanning 08/11/20. A follow-up pelvic MRI is scheduled and will be performed without and with contrast for additional high-resolution imaging through this area. That will be valuable for assessing for interval change at the L5-S1 level. Dictated by: João Scherer M.D. on 09/13/2020 at 16:17 Approved by: João Scherer M.D. on 09/13/2020 at 16:27
== END ==
PROVIDERS: PCP Family Medicine; Referring Provider Internal Medicine; Visit Provider Internal Medicine
DX: R97.20 Elevated prostate specific antigen [PSA] (principal); Z85.46 Personal history of malignant neoplasm of prostate; M54.5 Low back pain; M47.816 Spondylosis without myelopathy or radiculopathy, lumbar region; M47.817 Spondylosis without myelopathy or radiculopathy, lumbosacral region
CPT/HCPCS: 71260; 72197; 74177; A9579; Q9967

== ENCOUNTER → 2020-11-10 08:06 | Outpatient (CLI) | payer MEDICARE, BC, SELFPAY ==
[2020-11-10 08:24] LABS: Add Manual Diff / Slide Review NO; Basophils Absolute Auto 0 /uL (0-100); Basophils Percent Auto 0.7 % (0-2); Eosinophils Absolute Auto 100 /uL (0-450); Eosinophils Percent Auto 1.2 % (2-4); Hematocrit 42.6 % (41-53); Hemoglobin 14.3 g/dL (13.5-17.5); Lymphocytes Absolute Auto 1200 /uL (1100-4500); Lymphocytes Percent Auto 22.3 % (25-40); Mean Corpuscular HGB Conc 33.7 % (30-36); Mean Corpuscular Hemoglobin 32.3 PG (26-34); Mean Corpuscular Volume 95.8 fL (80-100); Monocytes Absolute Auto 600 /uL (0-900); Monocytes Percent Auto 10.6 % (3-14); Neutrophils Absolute Auto 3400 /uL (1500-7000); Neutrophils Percent Auto 65.2 % (50-75); Platelet Count 179 X10^3/uL (150-400); Red Blood Cell Count 4.45 X10^6/uL (4.5-5.9); White Blood Cell Count 5.3 X10^3/uL (4.5-11.0)
[2020-11-10 08:43] LABS: Alanine Aminotransferase 14 IU/L (<50); Albumin Globulin Ratio 1.5 (1.0-2.8); Alkaline Phosphatase 110 U/L (38-126); Aspartate Aminotransferase 27 IU/L (17-59); BUN Creatinine Ratio 15.5 (6-22); Bilirubin Total 0.6 mg/dL (0.2-1.3); Blood Urea Nitrogen 13 mg/dL (9-20); C-Reactive Protein Quant 0.9 mg/dL (<1.0); Calcium 9.6 mg/dL (8.4-10.2); Carbon Dioxide 31 mmol/L (22-32); Chloride 104 mmol/L (98-107); Estimated Glomerular Filt Rate > 60.0 mL/min (>60); Globulin 2.6 g/dL (1.7-4.1); Glucose 89 mg/dL (80-110); HEMOLYSIS 18 (0-50); Sodium 139 mmol/L (137-145); Total Protein 6.6 g/dL (6.3-8.2)
== END ==
PROVIDERS: PCP Student in an Organized Health Care Education/Training Program; Referring Provider Student in an Organized Health Care Education/Training Program; Visit Provider Student in an Organized Health Care Education/Training Program
DX: M46.46 Discitis, unspecified, lumbar region (principal); B95.61 Methicillin susceptible Staphylococcus aureus infection as the cause of diseases classified elsewhere; R78.81 Bacteremia
CPT/HCPCS: 36415; 80053; 85025; 86140

== ENCOUNTER → 2020-11-24 08:05 | Oncology outpatient (ONC) | payer MEDICARE, BC, SELFPAY ==
[2020-08-30 16:16] VITALS: BP 126/74; PULSE 85; RESP 16; O2SAT 99
--- NOTE | 2020-08-30 17:08 | ONC.CONS ---
History of Present Illness - Data of Consult Primary Care Provider: Ankur Kyle MD - Consult Narrative Narrative: Bebeto Slade is a 85 year old male who presents for further evaluation of prostate cancer. He originally presented in 1996 when he underwent brachytherapy by Dr. Shukri reza in [place]. His PSA was briefly Z undetectable afterwards but then has gradually risen. In 2010 he had a PSA of 14.4. Dr. Ricketts advised hormone therapy at that time which he declined. He has had multiple PSA studies done over the last 9 years. In September of 2014 was 31.8. In November of 2016 was 29.3. Most recently on August 22 that was 60.7. On July 27 he had an upper endoscopy. This was accompanied by a lower esophageal dilatation and biopsy which showed mild chronic inflammation, otherwise negative. Two days later he had the onset of increasing back pain. He describes it as sharp and increasing. It goes a little more to the right side of the lower back than the left but does not radiate any place else. It is worse when he stands or walks. It is increased with any movement. He had this once several years ago and it was of brief duration and resolved. He has been taking Advil, Tylenol, gabapentin, and lidocaine patches. The pain has reached the point where he is essentially bed ridden by it. He can get out of bed to go to the toilet her take a shower but he is very limited in spends pretty much the whole day in bed. He is also given a prescription for [place] which cause some loose in a shins and he is no longer taking this. He was in the emergency room on August 02. At that time plain films of the lumbosacral spine showed degenerative changes. Subsequent MRI of the lumbar some lumbar spine without contrast showed degenerative changes, neuroforaminal narrowing but no evidence of cancer. He was seen by Dr. Childs who prescribed the gabapentin forearm. He was set up for a bone scan that was done yesterday and this showed degenerative changes but no evidence of malignancy. Because of his severe back pain and elevated PSA is now referred for oncology consultation. Prior to the onset of this episode last month he was extremely active. He exercised for 40 minutes about 4 times a week. He has had a decreased appetite as a result of the pain. He states that he has lost 2-3 lb over the past month. He has had a cough but is not been short of breath. He has an essential tremor diagnosed about a year ago that is gotten worse as his pain is worsened. He does not have any numbness, tingling, localized weakness, bowel or bladder symptoms. He denies any fever, chills, sweats, bleeding, other pain, nausea, vomiting, or shortness of breath. All other systems are negative. Past medical history 1. No known drug allergies 2. Current medications include aspirin 81 mg daily, biotin 5 mg daily, vitamin-D 2000 units daily, gabapentin which he takes 3 times a day, hydrochlorothiazide 25 mg daily, as needed [place], lidocaine patch, multiple vitamin, as needed Aleve and rosuvastatin 10 mg daily. 3. DJD 4. He had an OH in 2016 with stent placement 5. High blood pressure 6. He denies diabetes, rheumatic fever, tuberculosis, strokes, stomach ulcers, pneumonia or any other kind of cancer 7. He has esophageal manometry and upper endoscopy for swallowing issues last month 8. He has had bilateral inguinal herniorrhaphy is but no other operations 9. 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 He is a who is accompanied by his significant other. He is not a smoker only an occasional drinker. 10. Family history is negative for malignancy CC: Kwaku Cloud MD Home Medications and Allergies Home Medications Medication Instructions Recorded Confirmed Type aspirin 81 mg PO QDAY #30 ctb 06/13/16 08/30/20 History multivitamin [Multiple Vitamins] 1 tab PO QDAY #0 tab 06/13/16 08/30/20 History biotin 5,000 mcg disintegrating 5,000 mcg PO DAILY tab 09/02/19 08/30/20 History tablet cholecalciferol (vitamin D3) 50 2,000 unit PO DAILY 09/02/19 08/30/20 History mcg (2,000 unit) capsule naproxen sodium 220 mg capsule 220 mg PO DAILY PRN cap 09/02/19 08/30/20 History rosuvastatin 10 mg tablet 10 mg PO DAILY #90 tab 09/02/19 08/30/20 Rx hydrochlorothiazide 25 mg tablet 25 mg PO DAILY #90 tab 02/02/20 08/30/20 Rx hydrocodone 5 mg-acetaminophen 325 1 tab PO Q8H PRN #10 tab 09/15/20 10/13/20 Rx mg tablet lidocaine 1 patch TOP DAILY #30 each 08/02/20 08/30/20 Rx gabapentin 300 mg capsule 300 mg PO .COMPLEX #90 cap 08/22/20 08/30/20 Rx Allergies Allergy/AdvReac Type Severity Reaction Status Date / Time No Known Drug Allergies Allergy Verified 08/22/20 15:54 Medical History - Medical, Surgical, Family History Medical History: Medical History (Last Updated 08/23/20 @ 16:13 by Dangelo Childs DO) Actinic keratosis Onset Date: ~1979 Acute bilateral low back pain Chronic back pain Discitis of lumbar region Elevated PSA Onset Date: 1996 Elevated PSA Facet arthropathy, lumbar GI bleeding Onset Date: 1999 Heart disease History of prostate cancer Hypertension Onset Date: 1998 Measles Melanoma Onset Date: 2011 Migraines Onset Date: 1989 Prostate cancer Onset Date: 1996 Surgical History: Surgical History (Last Reviewed 08/22/20 @ 16:36 by Dangelo Childs DO) Anesthesia History of melanoma excision Onset Date: 2011 History of prostate surgery Onset Date: 1996 Hx of cataract surgery Status post hernia repair Onset Date: 1995 Status post hernia repair Onset Date: 2004 Family History: Family History (Last Reviewed 08/22/20 @ 16:36 by Dangelo Childs DO) Brother Age: 80 Parkinson's disease Father Parkinson's disease Mother Aneurysm - Social History Smoking Status: Never smoker Review of Systems - Patient Self-Reported Symptoms SR Constitution: Weight loss/gain SR Cardiovascular issues: Palpitations SR Gastrointestinal issues: Poor or no appetite SR Genitourinary issues: Sexual difficulties SR Musculoskeletal issues: Joint pain or swelling, Muscle weakness, Muscle pain or cramps, Back or neck pain, Cold hands or feet, Difficulty walking, Bone pain Exam Vital signs: Vital Signs Pulse Resp BP Pulse Ox 08/30/20 16:16 85 16 126/74 99 Intake and Output 08/30/20 08/30/20 08/30/20 07:59 15:59 23:59 Other: Weight 60.4 kg Patient Weight 08/30/20 23:59 Weight 60.4 kg Narrative: He was awake, alert and oriented x3. He was in no acute distress at rest. He needed to balance with the wheelchair to see stand and take 2 steps to the examination table. He did not want to lie down on the examination table. There was no palpable lymphadenopathy in the cervical, supraclavicular axillary regions. There were bibasilar rales in the lungs that is not clear with cough and deep breathing. Heart showed a regular rate and rhythm without murmur, gallop or rub. The abdomen is soft and nontender without organomegaly or masses. There was no evidencelebitis in the lower extremities. Results - Imaging Additional studies: Procedures Administration of bjvqgornod-zjroruu-hunvgfvvl, combined (02/18/14) Closure of skin and subcutaneous tissue of other sites (02/18/14) Assessment and Plan (1) Elevated PSA Status: Acute Mr. Slade has a significant PSA elevation and back pain. Metastatic prostate cancer would explain these findings. However, his imaging studies to date do not support this diagnosis. I personally reviewed his MRI, bone scan and plain films. He has non malignant findings such as neuroforaminal narrowing but no clear evidence of malignancy on the studies. I explained to him and his significant other that most patients with metastatic prostate cancer will have multifocal bone disease. He has a severe pain syndrome of relatively recent onset that is localized to his lower back. In addition, his PSA has been elevated for a number of years with very slow rise. Accordingly, he may have a non malignant reason for his presentation. I did suggest that we get an MRI of the pelvis with and without contrast. Of note is that his lumbar spine MRI was done without contrast. The MRI of the pelvis will include L5 which did have some abnormality on the bone scan and with contrast enhancement way it may proved to be a more sensitive technique to look for malignancy in this area. Will also get a CT scan of the chest, abdomen and pelvis. This would be another modality to image his bones, would allow assessment of his lungs given the fact that he has the new onset of a cough, and would also be of means of screening for paraspinous lesions which might be outside the field of the MRI. Prostate cancer commonly goes to lymph nodes. The patient and his accountant certified public had multiple questions that were answered in detail. I personally spent 48 minutes in today's [id number] visit with greater than 50% of the time spent in counseling regarding the issues outlined above. Impression: 1. Brachytherapy for prostate cancer in 1996 2. Gradually rising PSA with a value of 14.4 in 2010, 31.8 in 2013 and 29.3 in 2017 3. 5 week history of severe lower back pain which is debilitating as outlined above 4. Plain films, lumbar spine MRI without contrast, and bone scan show what appear to be degenerative changes with no clear evidence of malignancy Recommendations: 1. MRI of the pelvis with and without contrast 2. CT scan of the chest, abdomen and pelvis with contrast 3. Return afterwards for review of results Like to thank Dr. Ankur Kyle in Dr. Dangelo Childs for referring this very pleasant and interesting patient.
--- NOTE | 2020-09-01 16:59 | PC.NURSE ---
PATIENTS PARTNER LEFT MESSAGE RE INCREASING PAIN SPREADING ACROSS HIPS. THIS NURSE UNABLE TO REACH PATIENT BENCH EXAMINER BACK. MESSAGE WAS LEFT THAT THEY SHOULD GO TO ER IF IT IS NOT MANAGEABLE AND COULD CALL TO SPEAK WITH ONCOLOGIST BENCH EXAMINER AT [phone].
[2020-09-12 15:28] LABS: Alanine Aminotransferase 18 IU/L (<50); Albumin 3.6 g/dL (3.5-5.0); Albumin Globulin Ratio 1.2 (1.0-2.8); Alkaline Phosphatase 100 U/L (38-126); Aspartate Aminotransferase 31 IU/L (17-59); BUN Creatinine Ratio 22.5 (6-22); Bilirubin Total 0.5 mg/dL (0.2-1.3); Blood Urea Nitrogen 18 mg/dL (9-20); Calcium 9.3 mg/dL (8.4-10.2); Carbon Dioxide 32 mmol/L (22-32); Chloride 97 mmol/L (98-107); Estimated Glomerular Filt Rate > 60.0 mL/min (>60); Glucose 133 mg/dL (80-110); HEMOLYSIS < 15 (0-50); Potassium 3.8 mmol/L (3.4-5.1); Sodium 133 mmol/L (137-145); Total Protein 6.6 g/dL (6.3-8.2)
--- NOTE | 2020-09-14 08:40 | P.PNONC_ITS ---
PN -Subjective Interval history: September 14, 2020. Reviewed CT/MRI with Dr. Scherer. Picture is consistent with discitis at L-5/S1. No evidence of metastatic bone disease on imaging. Discussed with Dr. Kyle. Dr. Kyle will arrange admission to [facility] for biopsy and initiation of antibiotics, with adjustment of antibiotic regimen depending on culture results. Called patient with this information. Explained that Dr. Kyle's office would be in touch with him later today with details on biopsy/cultures and next steps. - Patient Self-Reported Symptoms SR Constitution: Weight loss/gain SR Cardiovascular issues: Palpitations SR Gastrointestinal issues: Poor or no appetite SR Genitourinary issues: Sexual difficulties SR Musculoskeletal issues: Joint pain or swelling, Muscle weakness, Muscle pain or cramps, Back or neck pain, Cold hands or feet, Difficulty walking, Bone pain Home Medications and Allergies Home Medications Medication Instructions Recorded Confirmed Type aspirin 81 mg PO QDAY #30 ctb 06/13/16 08/30/20 History multivitamin [Multiple Vitamins] 1 tab PO QDAY #0 tab 06/13/16 08/30/20 History biotin 5,000 mcg disintegrating 5,000 mcg PO DAILY tab 09/02/19 08/30/20 History tablet cholecalciferol (vitamin D3) 50 2,000 unit PO DAILY 09/02/19 08/30/20 History mcg (2,000 unit) capsule naproxen sodium 220 mg capsule 220 mg PO DAILY PRN cap 09/02/19 08/30/20 History rosuvastatin 10 mg tablet 10 mg PO DAILY #90 tab 09/02/19 08/30/20 Rx hydrochlorothiazide 25 mg tablet 25 mg PO DAILY #90 tab 02/02/20 08/30/20 Rx hydrocodone 5 mg-acetaminophen 325 1 tab PO Q8H PRN #10 tab 08/02/20 08/30/20 Rx mg tablet lidocaine 1 patch TOP DAILY #30 each 08/02/20 08/30/20 Rx gabapentin 300 mg capsule 300 mg PO .COMPLEX #90 cap 08/22/20 08/30/20 Rx Allergies Allergy/AdvReac Type Severity Reaction Status Date / Time No Known Drug Allergies Allergy Verified 08/22/20 15:54 Exam Narrative: He was awake, alert and oriented x3. He was in no acute distress at rest. He needed to balance with the wheelchair to see stand and take 2 steps to the examination table. He did not want to lie down on the examination table. There was no palpable lymphadenopathy in the cervical, supraclavicular axillary regions. There were bibasilar rales in the lungs that is not clear with cough and deep breathing. Heart showed a regular rate and rhythm without murmur, gallop or rub. The abdomen is soft and nontender without organomegaly or masses. There was no evidencelebitis in the lower extremities. Results - Labs Laboratory Last Values Sodium 133 mmol/L (137-145) L 09/12/20 13:31 Potassium 3.8 mmol/L (3.4-5.1) 09/12/20 13:31 Chloride 97 mmol/L (98-107) L 09/12/20 13:31 Carbon Dioxide 32 mmol/L (22-32) 09/12/20 13:31 BUN 18 mg/dL (9-20) 09/12/20 13:31 Creatinine 0.80 mg/dL (0.66-1.25) 09/12/20 13:31 Estimated GFR > 60.0 mL/min (>60) 09/12/20 13:31 BUN/Creatinine Ratio 22.5 (6-22) H 09/12/20 13:31 Glucose 133 mg/dL (80-110) H 09/12/20 13:31 Calcium 9.3 mg/dL (8.4-10.2) 09/12/20 13:31 Total Bilirubin 0.5 mg/dL (0.2-1.3) 09/12/20 13:31 AST 31 IU/L (17-59) 09/12/20 13:31 ALT 18 IU/L (<50) 09/12/20 13:31 Alkaline Phosphatase 100 U/L (38-126) 09/12/20 13:31 Total Protein 6.6 g/dL (6.3-8.2) 09/12/20 13:31 Albumin 3.6 g/dL (3.5-5.0) 09/12/20 13:31 Globulin 3.0 g/dL (1.7-4.1) 09/12/20 13:31 Albumin/Globulin Ratio 1.2 (1.0-2.8) 09/12/20 13:31 - Imaging Additional studies: Procedures Administration of yxfhvvhvuo-iihztig-wcvuhrgql, combined (02/18/14) Closure of skin and subcutaneous tissue of other sites (02/18/14) Assessment and Plan (1) Elevated PSA Status: Acute Mr. Slade has a significant PSA elevation and back pain. Metastatic prostate cancer would explain these findings. However, his imaging studies to date do not support this diagnosis. I personally reviewed his MRI, bone scan and plain films. He has non malignant findings such as neuroforaminal narrowing but no clear evidence of malignancy on the studies. I explained to him and his significant other that most patients with metastatic prostate cancer will have multifocal bone disease. He has a severe pain syndrome of relatively recent onset that is localized to his lower back. In addition, his PSA has been elevated for a number of years with very slow rise. Accordingly, he may have a non malignant reason for his presentation. I did suggest that we get an MRI of the pelvis with and without contrast. Of note is that his lumbar spine MRI was done without contrast. The MRI of the pelvis will include L5 which did have some abnormality on the bone scan and with contrast enhancement way it may proved to be a more sensitive technique to look for malignancy in this area. Will also get a CT scan of the chest, abdomen and pelvis. This would be another modality to image his bones, would allow assessment of his lungs given the fact that he has the new onset of a cough, and would also be of means of screening for paraspinous lesions which might be outside the field of the MRI. Prostate cancer commonly goes to lymph nodes. The patient and his beaming machine operator had multiple questions that were answered in detail. I personally spent 48 minutes in today's [id number] visit with greater than 50% of the time spent in counseling regarding the issues outlined above. Impression: 1. Brachytherapy for prostate cancer in 1996 2. Gradually rising PSA with a value of 14.4 in 2010, 31.8 in 2013 and 29.3 in 2017 3. 5 week history of severe lower back pain which is debilitating as outlined above 4. Plain films, lumbar spine MRI without contrast, and bone scan show what appear to be degenerative changes with no clear evidence of malignancy Recommendations: 1. MRI of the pelvis with and without contrast 2. CT scan of the chest, abdomen and pelvis with contrast 3. Return afterwards for review of results Like to thank Dr. Ankur Kyle in Dr. Dangelo Childs for referring this very pleasant and interesting patient.
[2020-09-20 15:18] VITALS: BP 149/80; PULSE 72; RESP 16; TEMP 37; O2SAT 99
--- NOTE | 2020-09-20 16:00 | ONC.MSW ---
Description: Disabled Parking Activity: Per pt request, completed a Disabled Parking Permit application and provided to pt during visit. No further needs indicated at this time.
[2020-09-20] MEDS: CEFTRIAXONE 2 GM/50 ML FROZ.PIGGY IV (16:14)
[2020-09-20 16:33] LABS: Add Manual Diff / Slide Review NO; Basophils Absolute Auto 100 /uL (0-100); Basophils Percent Auto 0.7 % (0-2); Eosinophils Absolute Auto 200 /uL (0-450); Hematocrit 33.5 % (41-53); Hemoglobin 11.4 g/dL (13.5-17.5); Lymphocytes Absolute Auto 2200 /uL (1100-4500); Lymphocytes Percent Auto 26.8 % (25-40); Mean Corpuscular HGB Conc 33.9 % (30-36); Mean Corpuscular Hemoglobin 32.1 PG (26-34); Mean Corpuscular Volume 94.6 fL (80-100); Monocytes Absolute Auto 800 /uL (0-900); Monocytes Percent Auto 10.3 % (3-14); Neutrophils Absolute Auto 4800 /uL (1500-7000); Neutrophils Percent Auto 59.2 % (50-75); Platelet Count 250 X10^3/uL (150-400); Red Blood Cell Count 3.54 X10^6/uL (4.5-5.9); White Blood Cell Count 8.2 X10^3/uL (4.5-11.0)
[2020-09-20 16:52] LABS: Alanine Aminotransferase 33 IU/L (<50); Albumin 3.5 g/dL (3.5-5.0); Albumin Globulin Ratio 1.2 (1.0-2.8); Alkaline Phosphatase 97 U/L (38-126); Aspartate Aminotransferase 38 IU/L (17-59); BUN Creatinine Ratio 21.7 (6-22); Bilirubin Total 0.4 mg/dL (0.2-1.3); Blood Urea Nitrogen 15 mg/dL (9-20); C-Reactive Protein Quant 2.6 mg/dL (<1.0); Calcium 9.1 mg/dL (8.4-10.2); Carbon Dioxide 27 mmol/L (22-32); Chloride 105 mmol/L (98-107); Estimated Glomerular Filt Rate > 60.0 mL/min (>60); Glucose 81 mg/dL (80-110); HEMOLYSIS < 15 (0-50); Potassium 4.1 mmol/L (3.4-5.1); Sodium 136 mmol/L (137-145); Total Protein 6.5 g/dL (6.3-8.2)
[2020-09-20 17:00] LABS: Erythrocyte Sedimentation Rate 34 MM/HR (0-15)
--- NOTE | 2020-09-20 17:10 | ONC.PN ---
PN -Subjective Interval history: Bebeto Slade is a 85 year old male who presents for follow-up evaluation of prostate cancer. He originally presented in 1996 when he underwent brachytherapy by Dr. Shukri reza in [place]. His PSA was briefly Z undetectable afterwards but then has gradually risen. In 2010 he had a PSA of 14.4. Dr. Ricketts advised hormone therapy at that time which he declined. He has had multiple PSA studies done over the last 9 years. In September of 2014 was 31.8. In November of 2016 was 29.3. Most recently on August 22 that was 60.7. On July 27 he had an upper endoscopy. This was accompanied by a lower esophageal dilatation and biopsy which showed mild chronic inflammation, otherwise negative. Two days later he had the onset of increasing back pain. He describes it as sharp and increasing. It goes a little more to the right side of the lower back than the left but does not radiate any place else. It is worse when he stands or walks. It is increased with any movement. He had this once several years ago and it was of brief duration and resolved. He has been taking Advil, Tylenol, gabapentin, and lidocaine patches. The pain has reached the point where he is essentially bed ridden by it. He can get out of bed to go to the toilet her take a shower but he is very limited in spends pretty much the whole day in bed. He is also given a prescription for [place] which cause some loose in a shins and he is no longer taking this. He was in the emergency room on August 02. At that time plain films of the lumbosacral spine showed degenerative changes. Subsequent MRI of the lumbar some lumbar spine without contrast showed degenerative changes, neuroforaminal narrowing but no evidence of cancer. He was seen by Dr. Childs who prescribed the gabapentin forearm. He was set up for a bone scan that was done yesterday and this showed degenerative changes but no evidence of malignancy. Because of his severe back pain and elevated PSA was referred for oncology consultation. He had a CT scan of the chest, abdomen pelvis and its pelvic MRI done last week. This showed evidence of a diskitis in his L5-S1 region. He was subsequently admitted to [facility] in [place]. At that find time he was found to have strep viridans this with the organism sensitive to ceftriaxone and penicillin. He also had of an apparent vegetation on his tricuspid valve. A biopsy of the area of diskitis/osteomyelitis in the spine was done and I reviewed this with pathology at [facility] today. This was negative for any evidence of malignancy. He comes today for oncology follow-up. Prior to the onset of this episode last month he was extremely active. He exercised for 40 minutes about 4 times a week. He has had a decreased appetite as a result of the pain. He states that he has lost 2-3 lb over the past month. He has had a cough but is not been short of breath. He has an essential tremor diagnosed about a year ago that is gotten worse as his pain is worsened. He does not have any numbness, tingling, localized weakness, bowel or bladder symptoms. He denies any fever, chills, sweats, bleeding, other pain, nausea, vomiting, or shortness of breath. He is feeling better than when he was in the hospital with improvement of his pain but he still generally weak and quite tired. All other systems are negative. Past medical history 1. No known drug allergies 2. Current medications include aspirin 81 mg daily, biotin 5 mg daily, vitamin-D 2000 units daily, gabapentin which he takes 3 times a day, hydrochlorothiazide 25 mg daily, as needed [place], lidocaine patch, multiple vitamin, as needed Aleve and rosuvastatin 10 mg daily. 3. DJD 4. 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 High blood pressure 6. He denies diabetes, rheumatic fever, tuberculosis, strokes, stomach ulcers, pneumonia or any other kind of cancer 7. He has esophageal manometry and upper endoscopy for swallowing issues last month 8. He has had bilateral inguinal herniorrhaphy is but no other operations 9. 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 He is a who is accompanied by his significant other. He is not a smoker only an occasional drinker. 10. Family history is negative for malignancy - Patient Self-Reported Symptoms SR Constitution: Weight loss/gain SR Cardiovascular issues: Palpitations SR Gastrointestinal issues: Poor or no appetite SR Genitourinary issues: Sexual difficulties SR Musculoskeletal issues: Back or neck pain Home Medications and Allergies Home Medications Medication Instructions Recorded Confirmed Type aspirin 81 mg PO QDAY #30 ctb 06/13/16 08/30/20 History multivitamin [Multiple Vitamins] 1 tab PO QDAY #0 tab 06/13/16 08/30/20 History biotin 5,000 mcg disintegrating 5,000 mcg PO DAILY tab 09/02/19 08/30/20 History tablet cholecalciferol (vitamin D3) 50 2,000 unit PO DAILY 09/02/19 08/30/20 History mcg (2,000 unit) capsule rosuvastatin 10 mg tablet 10 mg PO DAILY #90 tab 09/02/19 08/30/20 Rx hydrocodone 5 mg-acetaminophen 325 1 tab PO Q8H PRN #10 tab 08/02/20 08/30/20 Rx mg tablet lidocaine 1 patch TOP DAILY #30 each 08/02/20 08/30/20 Rx gabapentin 300 mg capsule 300 mg PO .COMPLEX #90 cap 08/22/20 08/30/20 Rx Allergies Allergy/AdvReac Type Severity Reaction Status Date / Time No Known Drug Allergies Allergy Verified 08/22/20 15:54 Exam Vital signs: Vital Signs Temp Pulse Resp BP Pulse Ox 09/20/20 15:18 98.6 F 72 16 149/80 H 99 Narrative: He was awake, alert and oriented x3. He was in no acute distress at rest. Results - Labs Laboratory Last Values WBC 8.2 X10^3/uL (4.5-11.0) 09/20/20 16:15 RBC 3.54 X10^6/uL (4.5-5.9) L 09/20/20 16:15 Hgb 11.4 g/dL (13.5-17.5) L 09/20/20 16:15 Hct 33.5 % (41-53) L 09/20/20 16:15 MCV 94.6 fL (80-100) 09/20/20 16:15 MCH 32.1 PG (26-34) 09/20/20 16:15 MCHC 33.9 % (30-36) 09/20/20 16:15 RDW 14.0 % (11.6-14.8) 09/20/20 16:15 Plt Count 250 X10^3/uL (150-400) 09/20/20 16:15 Neut % (Auto) 59.2 % (50-75) 09/20/20 16:15 Lymph % (Auto) 26.8 % (25-40) 09/20/20 16:15 [place] % (Auto) 10.3 % (3-14) 09/20/20 16:15 Eos % (Auto) 3.0 % (2-4) 09/20/20 16:15 Baso % (Auto) 0.7 % (0-2) 09/20/20 16:15 Neut # (Auto) 4800 /uL (0120-5417) 09/20/20 16:15 Lymph # (Auto) 2200 /uL (2214-0083) 09/20/20 16:15 [place] # (Auto) 800 /uL (0-900) 09/20/20 16:15 Eos # (Auto) 200 /uL (0-450) 09/20/20 16:15 Baso # (Auto) 100 /uL (0-100) 09/20/20 16:15 ESR 34 MM/HR (0-15) H 09/20/20 16:15 Sodium 136 mmol/L (137-145) L 09/20/20 16:15 Potassium 4.1 mmol/L (3.4-5.1) 09/20/20 16:15 Chloride 105 mmol/L (98-107) 09/20/20 16:15 Carbon Dioxide 27 mmol/L (22-32) 09/20/20 16:15 BUN 15 mg/dL (9-20) 09/20/20 16:15 Creatinine 0.69 mg/dL (0.66-1.25) 09/20/20 16:15 Estimated GFR > 60.0 mL/min (>60) 09/20/20 16:15 BUN/Creatinine Ratio 21.7 (6-22) 09/20/20 16:15 Glucose 81 mg/dL (80-110) 09/20/20 16:15 Calcium 9.1 mg/dL (8.4-10.2) 09/20/20 16:15 Total Bilirubin 0.4 mg/dL (0.2-1.3) 09/20/20 16:15 AST 38 IU/L (17-59) 09/20/20 16:15 ALT 33 IU/L (<50) 09/20/20 16:15 Alkaline Phosphatase 97 U/L (38-126) 09/20/20 16:15 C-Reactive Protein 2.6 mg/dL (<1.0) H 09/20/20 16:15 Total Protein 6.5 g/dL (6.3-8.2) 09/20/20 16:15 Albumin 3.5 g/dL (3.5-5.0) 09/20/20 16:15 Globulin 3.0 g/dL (1.7-4.1) 09/20/20 16:15 Albumin/Globulin Ratio 1.2 (1.0-2.8) 09/20/20 16:15 - Imaging Additional studies: Procedures Administration of [id number]-[id number], combined (02/18/14) Closure of skin and subcutaneous tissue of other sites (02/18/14) Assessment and Plan (1) Elevated PSA Status: Acute Mr. Slade has a significant PSA elevation and back pain. Metastatic prostate cancer was not found on his imaging studies or biopsy of his L5-S1 lesion while he was in the hospital recently. Accordingly, I think that his more recent acute/subacute pain syndrome was a consequence of diskitis/osteomyelitis which is complicated by bacteremia and endocarditis. I discussed his case today with pathology from [facility] who confirmed that his biopsy was negative for prostate cancer, including an immunohistochemistry evaluation of the specimen. Despite his elevated PSA, I do not think he has evidence of clinically significant metastatic prostate cancer in observation would remain in an appropriate strategy for this. He will continue with his antibiotics and weekly lab monitoring under the direction of Dr. Kyle. Will plan to see him back here in about 3 months for follow-up. Impression: 1. Brachytherapy for prostate cancer in 1996 2. Gradually rising PSA with a value of 14.4 in 2010, 31.8 in 2013 and 29.3 in 2017 3. 5 week history of severe lower back pain which is debilitating as outlined above 4. Subsequent workup showed diskitis/osteomyelitis at L5-S1 5. Admission to [facility] on September 14 through September 19 with strep viridans sepsis, a tricuspid valve vegetation 6. Biopsy of the L5-S1 area during his recent hospitalization was negative for cancer, including an immune histochemistry workup of the specimen. Recommendations: 1. No therapy for prostate cancer is indicated at this time 2. Management of his strep viridans infection per Dr. Kyle and Dr. Erickson 3. Return here in 3 months for follow-up
[2020-09-21] MEDS: CEFTRIAXONE 2 GM/50 ML FROZ.PIGGY IV (15:06)
[2020-09-21 15:40] VITALS: BP 118/73; PULSE 92; RESP 16; TEMP 37.1; O2SAT 97
[2020-09-22 14:21] VITALS: BP 125/76; PULSE 81; RESP 16; TEMP 36.8; O2SAT 97
[2020-09-22] MEDS: CEFTRIAXONE 2 GM/50 ML FROZ.PIGGY IV (14:30)
--- NOTE | 2020-09-22 14:46 | PHA.NOTE ---
Ceftriaxone Treatment Order from Dr. Ankur Kyle to give Ceftriaxone 2gm IV daily, first dose on 09/20/2020 through 10/26/2020, for osteomyelitis. Weekly CBC, CMP, ESR, CRP. Fax results to Dr. Calderon at [phone].
[2020-09-23] MEDS: CEFTRIAXONE 2 GM/50 ML FROZ.PIGGY IV (14:16)
--- NOTE | 2020-09-23 14:44 | PC.NURSE ---
PATIENT HERE FOR CEFTRIAXONE INFUSION, ARRIVED IN , ABLE TO TRANSFER ALONE TO BED. HE STATES HE IS FEELING A SLIGHT BIT BETTER, STILL EXERIENCING BACK PAIN OF LEVEL 2. HE IS MANAGING THE PAIN WITH TYLENOL AND GABAPENTIN. NO CHEST PAIN OR SOB, NO CHILLS OR FEVER, P 85, RR 16 UNLABORED, SKIN WARM AND DRY TO TOUCH. PATIENT STATES HE HAS BEEN EATING, DRINKING AND ELIMINATING WITHOUT PROBLEM, HE IS NOT EXPERIENCING DIAHRREA OR ANY SKIN RASHES.
[2020-09-24] MEDS: CEFTRIAXONE 2 GM/50 ML FROZ.PIGGY IV (13:54)
[2020-09-24 14:34] VITALS: BP 135/74; PULSE 79; RESP 14; TEMP 36.3; O2SAT 98
[2020-09-25] MEDS: CEFTRIAXONE 2 GM/50 ML FROZ.PIGGY IV (13:45)
[2020-09-26] MEDS: CEFTRIAXONE 2 GM/50 ML FROZ.PIGGY IV (14:25)
[2020-09-27] MEDS: CEFTRIAXONE 2 GM/50 ML FROZ.PIGGY IV (14:25)
[2020-09-27 14:30] LABS: Add Manual Diff / Slide Review NO; Basophils Absolute Auto 100 /uL (0-100); Eosinophils Absolute Auto 200 /uL (0-450); Eosinophils Percent Auto 2.4 % (2-4); Hematocrit 33.6 % (41-53); Hemoglobin 11.3 g/dL (13.5-17.5); Lymphocytes Absolute Auto 1900 /uL (1100-4500); Lymphocytes Percent Auto 29.9 % (25-40); Mean Corpuscular HGB Conc 33.7 % (30-36); Mean Corpuscular Hemoglobin 32.2 PG (26-34); Mean Corpuscular Volume 95.4 fL (80-100); Monocytes Absolute Auto 800 /uL (0-900); Neutrophils Absolute Auto 3500 /uL (1500-7000); Neutrophils Percent Auto 54.7 % (50-75); Platelet Count 275 X10^3/uL (150-400); Red Blood Cell Count 3.52 X10^6/uL (4.5-5.9); Red Cell Distribution Width 14.4 % (11.6-14.8); White Blood Cell Count 6.5 X10^3/uL (4.5-11.0)
[2020-09-27 14:45] LABS: Alanine Aminotransferase 15 IU/L (<50); Albumin 3.5 g/dL (3.5-5.0); Albumin Globulin Ratio 1.3 (1.0-2.8); Alkaline Phosphatase 96 U/L (38-126); Aspartate Aminotransferase 24 IU/L (17-59); BUN Creatinine Ratio 16.2 (6-22); Bilirubin Total 0.4 mg/dL (0.2-1.3); Blood Urea Nitrogen 12 mg/dL (9-20); Carbon Dioxide 30 mmol/L (22-32); Chloride 104 mmol/L (98-107); Estimated Glomerular Filt Rate > 60.0 mL/min (>60); Globulin 2.8 g/dL (1.7-4.1); Glucose 104 mg/dL (80-110); HEMOLYSIS < 15 (0-50); Sodium 137 mmol/L (137-145); Total Protein 6.3 g/dL (6.3-8.2)
[2020-09-27 14:46] LABS: Erythrocyte Sedimentation Rate 34 MM/HR (0-15)
[2020-09-27 15:01] LABS: C-Reactive Protein Quant 1.7 mg/dL (<1.0)
[2020-09-28] MEDS: CEFTRIAXONE 2 GM/50 ML FROZ.PIGGY IV (13:55)
[2020-09-28 14:28] VITALS: BP 129/83; PULSE 91; RESP 16; O2SAT 98
[2020-09-29] MEDS: CEFTRIAXONE 2 GM/50 ML FROZ.PIGGY IV (14:20)
[2020-09-29 14:25] VITALS: BP 139/87; PULSE 89; RESP 16; TEMP 36.6; O2SAT 98
[2020-09-30] MEDS: CEFTRIAXONE 2 GM/50 ML FROZ.PIGGY IV (13:40)
[2020-09-30 13:44] VITALS: BP 147/66; PULSE 81; RESP 18; TEMP 36.6; O2SAT 96
[2020-10-01 13:42] VITALS: BP 158/78; PULSE 73; RESP 16; TEMP 36.3
[2020-10-01] MEDS: CEFTRIAXONE 2 GM/50 ML FROZ.PIGGY IV (13:43)
[2020-10-02] MEDS: CEFTRIAXONE 2 GM/50 ML FROZ.PIGGY IV (14:01)
--- NOTE | 2020-10-02 14:08 | PC.NURSE ---
Pt arrived via home with S.O. Has Power PICC, Abx started per orders.
[2020-10-02 14:09] VITALS: BP 148/82; PULSE 93; RESP 16; TEMP 36.6; O2SAT 99
[2020-10-03] MEDS: CEFTRIAXONE 2 GM/50 ML FROZ.PIGGY IV (14:14)
[2020-10-03 14:19] VITALS: BP 146/89; PULSE 91; RESP 16; TEMP 37; O2SAT 98
[2020-10-04 14:04] LABS: Add Manual Diff / Slide Review NO; Basophils Absolute Auto 100 /uL (0-100); Basophils Percent Auto 1.3 % (0-2); Eosinophils Absolute Auto 200 /uL (0-450); Eosinophils Percent Auto 2.9 % (2-4); Hematocrit 35.6 % (41-53); Hemoglobin 11.9 g/dL (13.5-17.5); Lymphocytes Absolute Auto 1700 /uL (1100-4500); Lymphocytes Percent Auto 28.3 % (25-40); Mean Corpuscular HGB Conc 33.6 % (30-36); Mean Corpuscular Hemoglobin 32.4 PG (26-34); Mean Corpuscular Volume 96.4 fL (80-100); Monocytes Absolute Auto 600 /uL (0-900); Monocytes Percent Auto 9.7 % (3-14); Neutrophils Absolute Auto 3500 /uL (1500-7000); Neutrophils Percent Auto 57.8 % (50-75); Platelet Count 232 X10^3/uL (150-400); Red Blood Cell Count 3.69 X10^6/uL (4.5-5.9); Red Cell Distribution Width 14.3 % (11.6-14.8)
[2020-10-04] MEDS: CEFTRIAXONE 2 GM/50 ML FROZ.PIGGY IV (14:05)
[2020-10-04 14:23] LABS: Alanine Aminotransferase 12 IU/L (<50); Albumin 3.7 g/dL (3.5-5.0); Albumin Globulin Ratio 1.3 (1.0-2.8); Alkaline Phosphatase 94 U/L (38-126); Aspartate Aminotransferase 23 IU/L (17-59); BUN Creatinine Ratio 17.3 (6-22); Bilirubin Total 0.4 mg/dL (0.2-1.3); Blood Urea Nitrogen 13 mg/dL (9-20); C-Reactive Protein Quant 1.1 mg/dL (<1.0); Calcium 9.2 mg/dL (8.4-10.2); Carbon Dioxide 31 mmol/L (22-32); Chloride 105 mmol/L (98-107); Estimated Glomerular Filt Rate > 60.0 mL/min (>60); Globulin 2.9 g/dL (1.7-4.1); Glucose 117 mg/dL (80-110); HEMOLYSIS < 15 (0-50); Potassium 3.4 mmol/L (3.4-5.1); Sodium 138 mmol/L (137-145); Total Protein 6.6 g/dL (6.3-8.2)
[2020-10-04 14:46] LABS: Erythrocyte Sedimentation Rate 23 MM/HR (0-15)
[2020-10-05 14:01] VITALS: BP 145/80; PULSE 80; RESP 16; TEMP 37.1; O2SAT 98
[2020-10-05] MEDS: CEFTRIAXONE 2 GM/50 ML FROZ.PIGGY IV (14:10)
[2020-10-06 13:56] VITALS: BP 129/82; PULSE 89; RESP 16; TEMP 36.6; O2SAT 98
[2020-10-06] MEDS: CEFTRIAXONE 2 GM/50 ML FROZ.PIGGY IV (14:03)
[2020-10-07] MEDS: CEFTRIAXONE 2 GM/50 ML FROZ.PIGGY IV (13:38)
[2020-10-07 13:44] VITALS: BP 131/67; PULSE 82; RESP 16; TEMP 36.5; O2SAT 98
[2020-10-08] MEDS: CEFTRIAXONE 2 GM/50 ML FROZ.PIGGY IV (13:21)
[2020-10-08 13:22] VITALS: BP 136/82; PULSE 78; RESP 18; TEMP 36.8; O2SAT 98
[2020-10-09] MEDS: CEFTRIAXONE 2 GM/50 ML FROZ.PIGGY IV (13:06)
[2020-10-10 14:02] VITALS: BP 148/76; PULSE 82; RESP 16; TEMP 36.6; O2SAT 99
[2020-10-10] MEDS: CEFTRIAXONE 2 GM/50 ML FROZ.PIGGY IV (14:20)
[2020-10-11] MEDS: CEFTRIAXONE 2 GM/50 ML FROZ.PIGGY IV (14:09)
[2020-10-11 14:13] VITALS: BP 134/92; PULSE 77; RESP 18; TEMP 36.8; O2SAT 98
[2020-10-11 14:13] LABS: Add Manual Diff / Slide Review NO; Basophils Absolute Auto 100 /uL (0-100); Basophils Percent Auto 1.2 % (0-2); Eosinophils Absolute Auto 200 /uL (0-450); Eosinophils Percent Auto 3.4 % (2-4); Hematocrit 37.2 % (41-53); Hemoglobin 12.5 g/dL (13.5-17.5); Lymphocytes Absolute Auto 1600 /uL (1100-4500); Lymphocytes Percent Auto 30.2 % (25-40); Mean Corpuscular HGB Conc 33.7 % (30-36); Mean Corpuscular Hemoglobin 32.2 PG (26-34); Mean Corpuscular Volume 95.5 fL (80-100); Monocytes Absolute Auto 600 /uL (0-900); Monocytes Percent Auto 11.1 % (3-14); Neutrophils Absolute Auto 2900 /uL (1500-7000); Neutrophils Percent Auto 54.1 % (50-75); Platelet Count 192 X10^3/uL (150-400); White Blood Cell Count 5.3 X10^3/uL (4.5-11.0)
[2020-10-11 14:57] LABS: Erythrocyte Sedimentation Rate 16 MM/HR (0-15)
[2020-10-11 15:18] LABS: Alanine Aminotransferase 13 IU/L (<50); Albumin 3.7 g/dL (3.5-5.0); Albumin Globulin Ratio 1.3 (1.0-2.8); Alkaline Phosphatase 98 U/L (38-126); Aspartate Aminotransferase 26 IU/L (17-59); BUN Creatinine Ratio 17.3 (6-22); Bilirubin Total 0.3 mg/dL (0.2-1.3); Blood Urea Nitrogen 14 mg/dL (9-20); C-Reactive Protein Quant 0.7 mg/dL (<1.0); Calcium 9.2 mg/dL (8.4-10.2); Carbon Dioxide 28 mmol/L (22-32); Chloride 106 mmol/L (98-107); Estimated Glomerular Filt Rate > 60.0 mL/min (>60); Globulin 2.9 g/dL (1.7-4.1); Glucose 101 mg/dL (80-110); HEMOLYSIS < 15 (0-50); Potassium 4.1 mmol/L (3.4-5.1); Sodium 138 mmol/L (137-145); Total Protein 6.6 g/dL (6.3-8.2)
[2020-10-12] MEDS: CEFTRIAXONE 2 GM/50 ML FROZ.PIGGY IV (14:09)
[2020-10-12 14:14] VITALS: BP 127/80; PULSE 85; RESP 16; TEMP 36.8; O2SAT 99
[2020-10-13] MEDS: CEFTRIAXONE 2 GM/50 ML FROZ.PIGGY IV (13:08)
[2020-10-14] MEDS: CEFTRIAXONE 2 GM/50 ML FROZ.PIGGY IV (13:25)
[2020-10-14 13:27] VITALS: BP 148/87; PULSE 93; RESP 16; TEMP 36.2; O2SAT 97
[2020-10-15] MEDS: CEFTRIAXONE 2 GM/50 ML FROZ.PIGGY IV (13:22)
[2020-10-15 13:36] VITALS: BP 150/81; PULSE 75; RESP 16; TEMP 36.6; O2SAT 99
--- NOTE | 2020-10-15 13:42 | PC.NURSE ---
Pt arrived via home for ABX infusion via PICC. Site intact, PICC patent. S.O. at bedside. Pt offers op overt c/o.
[2020-10-16 13:04] VITALS: BP 139/87; PULSE 90; RESP 16; TEMP 36.8; O2SAT 99
[2020-10-16] MEDS: CEFTRIAXONE 2 GM/50 ML FROZ.PIGGY IV (13:12)
[2020-10-17] MEDS: CEFTRIAXONE 2 GM/50 ML FROZ.PIGGY IV (14:14)
[2020-10-18] MEDS: CEFTRIAXONE 2 GM/50 ML FROZ.PIGGY IV (14:11)
[2020-10-18 14:24] VITALS: BP 154/70; PULSE 84; RESP 16; TEMP 36.7; O2SAT 99
[2020-10-18 14:28] LABS: Add Manual Diff / Slide Review NO; Basophils Absolute Auto 0 /uL (0-100); Basophils Percent Auto 0.9 % (0-2); Eosinophils Absolute Auto 100 /uL (0-450); Eosinophils Percent Auto 2.8 % (2-4); Hematocrit 36.6 % (41-53); Hemoglobin 12.2 g/dL (13.5-17.5); Lymphocytes Absolute Auto 1500 /uL (1100-4500); Mean Corpuscular HGB Conc 33.3 % (30-36); Mean Corpuscular Hemoglobin 32.1 PG (26-34); Mean Corpuscular Volume 96.3 fL (80-100); Monocytes Absolute Auto 600 /uL (0-900); Monocytes Percent Auto 12.1 % (3-14); Neutrophils Absolute Auto 2700 /uL (1500-7000); Neutrophils Percent Auto 54.2 % (50-75); Platelet Count 180 X10^3/uL (150-400); Red Cell Distribution Width 13.5 % (11.6-14.8); White Blood Cell Count 5.1 X10^3/uL (4.5-11.0)
[2020-10-18 14:53] LABS: Alanine Aminotransferase 13 IU/L (<50); Albumin 3.6 g/dL (3.5-5.0); Albumin Globulin Ratio 1.3 (1.0-2.8); Alkaline Phosphatase 95 U/L (38-126); Aspartate Aminotransferase 23 IU/L (17-59); BUN Creatinine Ratio 20.8 (6-22); Bilirubin Total 0.4 mg/dL (0.2-1.3); Blood Urea Nitrogen 16 mg/dL (9-20); C-Reactive Protein Quant 0.9 mg/dL (<1.0); Carbon Dioxide 28 mmol/L (22-32); Chloride 107 mmol/L (98-107); Estimated Glomerular Filt Rate > 60.0 mL/min (>60); Globulin 2.7 g/dL (1.7-4.1); Glucose 84 mg/dL (80-110); HEMOLYSIS < 15 (0-50); Potassium 3.9 mmol/L (3.4-5.1); Sodium 137 mmol/L (137-145); Total Protein 6.3 g/dL (6.3-8.2)
[2020-10-18 15:27] LABS: Erythrocyte Sedimentation Rate 17 MM/HR (0-15)
[2020-10-19] MEDS: CEFTRIAXONE 2 GM/50 ML FROZ.PIGGY IV (14:59)
[2020-10-19 15:05] VITALS: BP 141/80; PULSE 82; RESP 16; TEMP 37.3; O2SAT 97
[2020-10-20 14:27] VITALS: BP 147/89; PULSE 84; RESP 18; TEMP 36.9; O2SAT 98
[2020-10-20] MEDS: CEFTRIAXONE 2 GM/50 ML FROZ.PIGGY IV (14:38)
[2020-10-21] MEDS: CEFTRIAXONE 2 GM/50 ML FROZ.PIGGY IV (13:08)
[2020-10-22 12:59] VITALS: BP 161/80; RESP 16; TEMP 36.4
[2020-10-22] MEDS: CEFTRIAXONE 2 GM/50 ML FROZ.PIGGY IV (13:00)
[2020-10-23] MEDS: CEFTRIAXONE 2 GM/50 ML FROZ.PIGGY IV (13:09)
[2020-10-23 13:12] VITALS: BP 159/95; PULSE 86; RESP 18; TEMP 36.8; O2SAT 98
[2020-10-24] MEDS: CEFTRIAXONE 2 GM/50 ML FROZ.PIGGY IV (14:39)
[2020-10-24 14:40] VITALS: BP 149/79; PULSE 68; RESP 16; TEMP 36.7; O2SAT 98
[2020-10-25 14:20] VITALS: BP 166/92; PULSE 80; RESP 18; TEMP 36.9; O2SAT 99
[2020-10-25] MEDS: CEFTRIAXONE 2 GM/50 ML FROZ.PIGGY IV (14:26)
[2020-10-25 14:27] LABS: Add Manual Diff / Slide Review NO; Basophils Absolute Auto 100 /uL (0-100); Basophils Percent Auto 1.9 % (0-2); Eosinophils Absolute Auto 100 /uL (0-450); Eosinophils Percent Auto 1.9 % (2-4); Hematocrit 38.3 % (41-53); Hemoglobin 12.9 g/dL (13.5-17.5); Lymphocytes Absolute Auto 1700 /uL (1100-4500); Lymphocytes Percent Auto 34.3 % (25-40); Mean Corpuscular HGB Conc 33.7 % (30-36); Mean Corpuscular Hemoglobin 32.3 PG (26-34); Mean Corpuscular Volume 95.8 fL (80-100); Monocytes Absolute Auto 500 /uL (0-900); Monocytes Percent Auto 9.5 % (3-14); Neutrophils Absolute Auto 2600 /uL (1500-7000); Neutrophils Percent Auto 52.4 % (50-75); Platelet Count 176 X10^3/uL (150-400); Red Cell Distribution Width 13.5 % (11.6-14.8); White Blood Cell Count 4.9 X10^3/uL (4.5-11.0)
[2020-10-25 14:49] LABS: Alanine Aminotransferase 17 IU/L (<50); Albumin 3.9 g/dL (3.5-5.0); Albumin Globulin Ratio 1.5 (1.0-2.8); Alkaline Phosphatase 100 U/L (38-126); Aspartate Aminotransferase 27 IU/L (17-59); BUN Creatinine Ratio 16.5 (6-22); Bilirubin Total 0.3 mg/dL (0.2-1.3); Blood Urea Nitrogen 13 mg/dL (9-20); C-Reactive Protein Quant 0.6 mg/dL (<1.0); Calcium 9.2 mg/dL (8.4-10.2); Carbon Dioxide 31 mmol/L (22-32); Chloride 105 mmol/L (98-107); Estimated Glomerular Filt Rate > 60.0 mL/min (>60); Globulin 2.6 g/dL (1.7-4.1); Glucose 118 mg/dL (80-110); HEMOLYSIS < 15 (0-50); Potassium 3.9 mmol/L (3.4-5.1); Sodium 137 mmol/L (137-145); Total Protein 6.5 g/dL (6.3-8.2)
[2020-10-25 14:54] LABS: Erythrocyte Sedimentation Rate 7 MM/HR (0-15)
[2020-10-26 14:10] VITALS: BP 157/84; PULSE 70; RESP 16; TEMP 36.8; O2SAT 100
[2020-10-26] MEDS: CEFTRIAXONE 2 GM/50 ML FROZ.PIGGY IV (14:13)
--- NOTE | 2020-10-27 09:40 | PC.NURSE ---
ABX order update: This RN received call from DELANO Murrieta for Dr. Martin, infectious disease provider, PICC to be DC'd today after ABX infusion. Glenny agrees to fax orders, clinic fax number provided. Awaiting fax.
[2020-10-27] MEDS: CEFTRIAXONE 2 GM/50 ML FROZ.PIGGY IV (14:14)
[2020-10-27 14:20] VITALS: BP 145/90; PULSE 84; RESP 16; TEMP 36.6; O2SAT 99
[2020-10-27] MEDS: NEOMYCIN/POLYMYXIN/BACITRA UD OINT 1 EACH TOP (14:58)
[2020-11-24 08:52] LABS: Add Manual Diff / Slide Review NO; Basophils Absolute Auto 0 /uL (0-100); Basophils Percent Auto 0.6 % (0-2); Eosinophils Absolute Auto 100 /uL (0-450); Eosinophils Percent Auto 1.6 % (2-4); Hematocrit 43.8 % (41-53); Hemoglobin 14.7 g/dL (13.5-17.5); Lymphocytes Absolute Auto 1600 /uL (1100-4500); Lymphocytes Percent Auto 29.9 % (25-40); Mean Corpuscular HGB Conc 33.5 % (30-36); Mean Corpuscular Hemoglobin 32.1 PG (26-34); Mean Corpuscular Volume 95.8 fL (80-100); Monocytes Absolute Auto 400 /uL (0-900); Monocytes Percent Auto 7.7 % (3-14); Neutrophils Absolute Auto 3200 /uL (1500-7000); Neutrophils Percent Auto 60.2 % (50-75); Platelet Count 191 X10^3/uL (150-400); Red Blood Cell Count 4.57 X10^6/uL (4.5-5.9); Red Cell Distribution Width 12.4 % (11.6-14.8); White Blood Cell Count 5.4 X10^3/uL (4.5-11.0)
[2020-11-24 09:07] LABS: Erythrocyte Sedimentation Rate 4 MM/HR (0-15)
[2020-11-24 09:35] LABS: Alanine Aminotransferase 13 IU/L (<50); Albumin 3.9 g/dL (3.5-5.0); Albumin Globulin Ratio 1.6 (1.0-2.8); Alkaline Phosphatase 103 U/L (38-126); Aspartate Aminotransferase 25 IU/L (17-59); BUN Creatinine Ratio 16.7 (6-22); Bilirubin Total 0.5 mg/dL (0.2-1.3); Blood Urea Nitrogen 14 mg/dL (9-20); Calcium 9.5 mg/dL (8.4-10.2); Carbon Dioxide 31 mmol/L (22-32); Chloride 105 mmol/L (98-107); Estimated Glomerular Filt Rate > 60.0 mL/min (>60); Globulin 2.4 g/dL (1.7-4.1); Glucose 88 mg/dL (80-110); HEMOLYSIS < 15 (0-50); Potassium 3.9 mmol/L (3.4-5.1); Sodium 140 mmol/L (137-145); Total Protein 6.3 g/dL (6.3-8.2)
[2020-11-24 09:39] LABS: C-Reactive Protein Quant 0.6 mg/dL (<1.0)
[2020-11-24 10:06] LABS: Prostate Specific Antigen 47.6 ng/mL (0.10-4.00)
== END ==
PROVIDERS: Internal Medicine; PCP Family Medicine; Referring Provider Family Medicine; Visit Provider Internal Medicine Hematology & Oncology
DX: M46.47 Discitis, unspecified, lumbosacral region (principal); R97.21 Rising PSA following treatment for malignant neoplasm of prostate
CPT/HCPCS: 36415; 36592; 80053; 84153; 85025; 85651; 86140; 96365; 96523; 99204; 99214; J0696; J1642

== ENCOUNTER → 2020-12-06 07:52 | Outpatient (CLI) | payer MEDICARE, BC, SELFPAY ==
--- NOTE | 2020-12-06 07:53 | DI.ECHO.S_ITS ---
[facility] +---------+ [facility] +---------+ : : [address] : [place] : : : : [id number] : : : : Phone: [phone]---------+ Echocardiogram Report + + :Name: RACHELLE ESTEVEZ Study Date: 12/06/2020 Height: 66 in : :[employer] ReadingLocation: Weight: 130 lb : : Gender: Male BSA: 1.7 m2 : :: 1935 Age: 85 yrs BP: 158/88 mmHg: :Reason For Study: F/U PREVIOUS ABNORMAL ECHOCARDIOGRAM : :Ordering Physician: REGINO, : :GLORY Performed By: Nerga Dotson : :Referring: BEATA RIDER : + + Interpretation Summary Normal sinus rhythm. Mildly dilated LV. Normal wall thickness. There is basal inferolateral akinesis; mid-inferolateral and mid-inferior hypokinesis. Otherwise normal wall motion and LV systolic function. EF is 45- 50%. Mild LA enlargement; otherwise normal chamber sizes. Moderate AI in the setting of sclerotic leaflets. Mildly dilated ascending aorta. Compared to prior study 08/01/2020, LV is slightly less dynamic. EF is down from 50-55% to 45-50%. Focal wall motion abnormalities are unchanged from prior study. Procedure: A two-dimensional transthoracic echocardiogram with color flow and Doppler was performed. The study quality was technically adequate. Comparison is made with the echocardiogram of 08/01/2020. The patient was in atrial fibrillation with heart rates between 58-73 bpm during the exam. Left Ventricle: The left ventricle is mildly dilated. The estimated left ventricular end diastolic volume is 122 ml. The left ventricle is normal in size. The ejection fraction is estimated to be 45-50%. Diastolic function could not be accurately assessed due to atrial fibrillation. Right Ventricle: The right ventricle is normal in size and function. Atria: The left atrium is mildly dilated. Right atrial size is normal. There is no Doppler evidence for an interatrial shunt. Mitral Valve: There is mild mitral annular calcification. The mitral valve leaflets appear mildly thickened, but open well. There is mild to moderate mitral regurgitation. There are multiple regurgitant jets present. Aortic Valve: The aortic valve is grossly normal. The aortic valve is trileaflet. The aortic valve opens well. There is no aortic valve stenosis. There is mild to moderate aortic regurgitation. Tricuspid Valve: The tricuspid valve leaflets are thin and pliable. There is mild to moderate tricuspid regurgitation. The right ventricular systolic pressure is estimated to be at least 29 mmHg based on an estimated right atrial pressure of 3 mm Hg. Pulmonic Valve: The pulmonic valve leaflets are thin and pliable; valve motion is normal. There is trace pulmonic regurgitation. Great Vessels: The aortic root is normal size. The ascending aorta is mildly enlarged. The IVC is of normal diameter and collapses greater than 50% with a sniff. This suggests a low right atrial pressure of 3 mm Hg. Pericardium/ Pleura There is no pericardial effusion. There is no pleural effusion. MMode/2D Measurements & Calculations LVIDd: 6.2 cm LVOT diam: 2.0 cm LVIDs: 4.7 cm Ao root diam: 3.7 cm FS: 24.7 % asc Aorta Diam: 3.5 cm IVSd: 0.90 cm Ao Arch Diam (Prox Trans): 2.6 cm LVPWd: 0.73 cm LV shannon. diameter/BSA (cm/m^2): 3.7 LV sys. diameter/BSA (cm/m^2): 2.8 LA A2 area: 22.7 cm2 RA long axis: 5.3 cm LA A4 area: 16.7 cm2 RA area: 18.5 cm2 LA length (vol): 5.0 cm RA vol: 54.4 ml LA vol: 63.6 ml RA : 32.6 ml/m2 LA vol index: 38.2 ml/m2 IVC diam: 1.3 cm RVD1 (basal): 3.8 cm TAPSE: 2.0 cm Doppler Measurements & Calculations Ao V2 max: 140.9 cm/sec LVOT Max Elías: 98.7 cm/sec Ao V2 mean: 94.7 cm/sec LV V1 max P.9 mmHg Ao max P.9 mmHg LV V1 VTI: 20.2 cm Ao mean P.0 mmHg PAULETTE(I,D): 2.4 cm2 Ao V2 VTI: 27.4 cm PAULETTE(V,D): 2.3 cm2 sev ratio: 0.74 PAULETTE indexed to BSA (cm^2/m^2): 1.4 AI P1/2t: 461.1 msec AI dec slope: 315.8 cm/sec2 MV E max elías: 84.6 cm/sec TR max elías: 254.0 cm/sec MV A max elías: 1.4 cm/sec TR max P.8 mmHg MV E/A: 59.9 PA V2 max: 58.7 cm/sec Med Peak E' Elías: 2.4 cm/sec PA V2 mean: 37.3 cm/sec E/E' med: 35.3 PA mean P.68 mmHg Lat Peak E' Elías: 3.0 cm/sec PA pr(Accel): 37.9 mmHg E/E' lat: 28.3 E/e' average: 31.8 MV dec time: 0.11 sec SV(LVOT): 65.5 ml Electronically signed by: Lani Navas M.D. on Reading Physician:12/06/2020 09:57 PM
== END ==
PROVIDERS: PCP Student in an Organized Health Care Education/Training Program; Referring Provider Student in an Organized Health Care Education/Training Program; Visit Provider Student in an Organized Health Care Education/Training Program
DX: I08.3 Combined rheumatic disorders of mitral, aortic and tricuspid valves (principal); I77.89 Other specified disorders of arteries and arterioles; R93.1 Abnormal findings on diagnostic imaging of heart and coronary circulation; R78.81 Bacteremia; B95.61 Methicillin susceptible Staphylococcus aureus infection as the cause of diseases classified elsewhere
CPT/HCPCS: 93306

== ENCOUNTER → 2021-02-28 10:08 | Outpatient (CLI) | payer MEDICARE, BC, SELFPAY ==
--- NOTE | 2021-02-28 10:10 | DI.RAD.S_ITS ---
PROCEDURE: XR HIP W PEL IF DONE RT 2V INDICATIONS: Right hip pain TECHNIQUE: AP pelvis with lateral view(s) of the right hip(s). COMPARISON: [facility], CR, XR LUMBAR SPINE 2-3V, 08/02/2020, 16:13. [facility], MR, MR LUMBAR SPINE WO CON, 08/11/2020, 7:01. [facility], NM, NM BONE SCAN WHOLE BODY, 08/29/2020, 13:36. [facility], MR, MR PELVIS WO/W CON, 09/13/2020, 15:17. [facility], CT, CT CHEST ABD PEL W CON, 09/13/2020, 14:53. FINDINGS: Bones: No fractures or dislocations. Pelvic ring appears intact. No suspicious bony lesions. Mild symmetric hip joint degeneration bilaterally. A 4 mm sclerosis projecting to the superior pubic ramus, probably a bone island. Soft tissues: The visualized bowel gas pattern is normal. No suspicious soft tissue calcifications. There are metallic implants in prostate. IMPRESSION: 1. 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 Dictated by: Emelia Barbosa M.D. on 02/28/2021 at 15:45 Approved by: Emelia Barbosa M.D. on 02/28/2021 at 15:47
[2021-02-28 11:13] LABS: Add Manual Diff / Slide Review NO; Basophils Absolute Auto 0 /uL (0-100); Basophils Percent Auto 0.4 % (0-2); Eosinophils Absolute Auto 100 /uL (0-450); Eosinophils Percent Auto 1.1 % (2-4); Hematocrit 43.3 % (41-53); Hemoglobin 14.4 g/dL (13.5-17.5); Lymphocytes Absolute Auto 1500 /uL (1100-4500); Lymphocytes Percent Auto 31.9 % (25-40); Mean Corpuscular HGB Conc 33.3 % (30-36); Mean Corpuscular Hemoglobin 31.6 PG (26-34); Mean Corpuscular Volume 94.8 fL (80-100); Monocytes Absolute Auto 500 /uL (0-900); Monocytes Percent Auto 10.1 % (3-14); Neutrophils Absolute Auto 2700 /uL (1500-7000); Neutrophils Percent Auto 56.5 % (50-75); Platelet Count 171 X10^3/uL (150-400); Red Blood Cell Count 4.56 X10^6/uL (4.5-5.9); White Blood Cell Count 4.8 X10^3/uL (4.5-11.0)
[2021-02-28 11:53] LABS: Alanine Aminotransferase 17 IU/L (<50); Albumin 3.9 g/dL (3.5-5.0); Albumin Globulin Ratio 1.6 (1.0-2.8); Alkaline Phosphatase 94 U/L (38-126); Aspartate Aminotransferase 28 IU/L (17-59); Bilirubin Total 0.4 mg/dL (0.2-1.3); Bilirubin Unconjugated 0.4 mg/dL (0.0-1.1); Cholesterol 136 mg/dL (140-199); Globulin 2.4 g/dL (1.7-4.1); HDL Cholesterol 68 mg/dL (40-60); HEMOLYSIS < 15 (0-50); LDL Cholesterol Calculated 40 mg/dL (<100); Total Protein 6.3 g/dL (6.3-8.2); Triglycerides 138 mg/dL (35-150)
[2021-02-28 12:24] LABS: Prostate Specific Antigen 44.2 ng/mL (0.10-4.00)
== END ==
PROVIDERS: PCP Student in an Organized Health Care Education/Training Program; Referring Provider Student in an Organized Health Care Education/Training Program; Visit Provider Student in an Organized Health Care Education/Training Program
DX: M25.551 Pain in right hip (principal); E78.2 Mixed hyperlipidemia; R97.20 Elevated prostate specific antigen [PSA]; I21.4 Non-ST elevation (NSTEMI) myocardial infarction; M46.46 Discitis, unspecified, lumbar region; T39.1X1A Poisoning by 4-Aminophenol derivatives, accidental (unintentional), initial encounter
CPT/HCPCS: 36415; 73502; 80061; 80076; 84153; 85025

== ENCOUNTER → 2021-05-23 11:43 | Outpatient (CLI) | payer MEDICARE, BC, SELFPAY ==
[2021-05-23 13:56] LABS: Add Manual Diff / Slide Review NO; Basophils Absolute Auto 0 /uL (0-100); Basophils Percent Auto 0.5 % (0-2); Eosinophils Absolute Auto 0 /uL (0-450); Eosinophils Percent Auto 0.6 % (2-4); Hematocrit 43.6 % (41-53); Hemoglobin 14.8 g/dL (13.5-17.5); Lymphocytes Absolute Auto 1900 /uL (1100-4500); Lymphocytes Percent Auto 38.7 % (25-40); Mean Corpuscular Hemoglobin 32.3 PG (26-34); Mean Corpuscular Volume 95.1 fL (80-100); Monocytes Absolute Auto 400 /uL (0-900); Monocytes Percent Auto 7.9 % (3-14); Neutrophils Absolute Auto 2500 /uL (1500-7000); Neutrophils Percent Auto 52.3 % (50-75); Platelet Count 180 X10^3/uL (150-400); Red Blood Cell Count 4.59 X10^6/uL (4.5-5.9); Red Cell Distribution Width 12.7 % (11.6-14.8); White Blood Cell Count 4.8 X10^3/uL (4.5-11.0)
[2021-05-23 14:13] LABS: Erythrocyte Sedimentation Rate 3 MM/HR (0-15)
[2021-05-23 14:16] LABS: Alanine Aminotransferase 16 IU/L (<50); Albumin Globulin Ratio 1.6 (1.0-2.8); Alkaline Phosphatase 80 U/L (38-126); Aspartate Aminotransferase 28 IU/L (17-59); BUN Creatinine Ratio 12.2 (6-22); Bilirubin Total 0.5 mg/dL (0.2-1.3); Blood Urea Nitrogen 11 mg/dL (9-20); Calcium 9.5 mg/dL (8.4-10.2); Carbon Dioxide 28 mmol/L (22-32); Chloride 104 mmol/L (98-107); Estimated Glomerular Filt Rate > 60.0 mL/min (>60); Globulin 2.5 g/dL (1.7-4.1); Glucose 120 mg/dL (80-110); HEMOLYSIS < 15 (0-50); Potassium 4.1 mmol/L (3.4-5.1); Sodium 139 mmol/L (137-145); Total Protein 6.5 g/dL (6.3-8.2)
[2021-05-24 17:45] LABS: ANA Screen, IFA Negative (.)
== END ==
PROVIDERS: PCP Student in an Organized Health Care Education/Training Program; Referring Provider Internal Medicine Cardiovascular Disease; Visit Provider Internal Medicine Cardiovascular Disease
DX: I10 Essential (primary) hypertension (principal); I25.10 Atherosclerotic heart disease of native coronary artery without angina pectoris; I35.1 Nonrheumatic aortic (valve) insufficiency; I73.9 Peripheral vascular disease, unspecified
CPT/HCPCS: 36415; 80053; 85025; 85651; 86038

== ENCOUNTER → 2021-05-25 14:38 | Outpatient (CLI) | payer MEDICARE, BC, SELFPAY ==
[2021-05-25 15:32] LABS: Add Manual Diff / Slide Review NO; Basophils Absolute Auto 0 /uL (0-100); Basophils Percent Auto 0.6 % (0-2); Eosinophils Absolute Auto 0 /uL (0-450); Eosinophils Percent Auto 0.5 % (2-4); Hematocrit 45.5 % (41-53); Hemoglobin 15.3 g/dL (13.5-17.5); Lymphocytes Absolute Auto 1700 /uL (1100-4500); Lymphocytes Percent Auto 35.3 % (25-40); Mean Corpuscular HGB Conc 33.7 % (30-36); Mean Corpuscular Hemoglobin 32.1 PG (26-34); Mean Corpuscular Volume 95.2 fL (80-100); Monocytes Absolute Auto 500 /uL (0-900); Monocytes Percent Auto 9.8 % (3-14); Neutrophils Absolute Auto 2500 /uL (1500-7000); Neutrophils Percent Auto 53.8 % (50-75); Platelet Count 178 X10^3/uL (150-400); Red Blood Cell Count 4.78 X10^6/uL (4.5-5.9); Red Cell Distribution Width 12.7 % (11.6-14.8); White Blood Cell Count 4.7 X10^3/uL (4.5-11.0)
[2021-05-25 15:51] LABS: Alanine Aminotransferase 16 IU/L (<50); Albumin 4.2 g/dL (3.5-5.0); Albumin Globulin Ratio 1.4 (1.0-2.8); Alkaline Phosphatase 88 U/L (38-126); Aspartate Aminotransferase 29 IU/L (17-59); BUN Creatinine Ratio 12.5 (6-22); Bilirubin Total 0.5 mg/dL (0.2-1.3); Blood Urea Nitrogen 11 mg/dL (9-20); C-Reactive Protein Quant < 0.5 mg/dL (<1.0); Calcium 9.7 mg/dL (8.4-10.2); Carbon Dioxide 28 mmol/L (22-32); Chloride 106 mmol/L (98-107); Estimated Glomerular Filt Rate > 60.0 mL/min (>60); Glucose 91 mg/dL (80-110); HEMOLYSIS < 15 (0-50); Sodium 139 mmol/L (137-145); Total Protein 7.2 g/dL (6.3-8.2)
[2021-05-25 15:53] LABS: Erythrocyte Sedimentation Rate 4 MM/HR (0-15)
== END ==
PROVIDERS: PCP Student in an Organized Health Care Education/Training Program; Referring Provider Ophthalmology; Visit Provider Ophthalmology
DX: M31.6 Other giant cell arteritis (principal); H57.12 Ocular pain, left eye
CPT/HCPCS: 36415; 80053; 85025; 85651; 86140

== ENCOUNTER → 2022-05-23 11:40 | Outpatient (CLI) | payer MEDICARE, BC, SELFPAY ==
[2022-05-23 15:48] LABS: Alanine Aminotransferase 14 IU/L (<50); Albumin 3.6 g/dL (3.5-5.0); Albumin Globulin Ratio 1.4 (1.0-2.8); Alkaline Phosphatase 72 U/L (38-126); Aspartate Aminotransferase 25 IU/L (17-59); BUN Creatinine Ratio 17.2 (6-22); Bilirubin Total 0.5 mg/dL (0.2-1.3); Blood Urea Nitrogen 16 mg/dL (9-20); Calcium 8.7 mg/dL (8.4-10.2); Carbon Dioxide 26 mmol/L (22-32); Chloride 107 mmol/L (98-107); Cholesterol 127 mg/dL (140-199); Estimated Glomerular Filt Rate > 60 mL/min (>60); Globulin 2.6 g/dL (1.7-4.1); Glucose 92 mg/dL (80-110); HDL Cholesterol 62 mg/dL (40-60); HEMOLYSIS < 15 (0-50); LDL Cholesterol Calculated 37 mg/dL (<100); Potassium 4.2 mmol/L (3.4-5.1); Sodium 139 mmol/L (137-145); Total Protein 6.2 g/dL (6.3-8.2); Triglycerides 142 mg/dL (35-150)
== END ==
PROVIDERS: PCP Student in an Organized Health Care Education/Training Program; Referring Provider Student in an Organized Health Care Education/Training Program; Visit Provider Student in an Organized Health Care Education/Training Program
DX: E78.2 Mixed hyperlipidemia (principal); I10 Essential (primary) hypertension; I50.20 Unspecified systolic (congestive) heart failure
CPT/HCPCS: 36415; 80053; 80061

== ENCOUNTER → 2023-02-28 12:13 | Outpatient (CLI) | payer MEDICARE, BC, SELFPAY ==
[2023-02-28 13:41] LABS: Appearance Urine UA CLEAR; Bilirubin Urine UA NEGATIVE (NEGATIVE); Color Urine UA YELLOW; Glucose Urine UA NEGATIVE (Negative); Ketones Urine UA NEGATIVE (NEGATIVE); Leukocyte Esterase Urine UA NEGATIVE (NEGATIVE); Nitrite Urine UA NEGATIVE (Negative); Occult Blood Urine UA NEGATIVE (Negative); Protein Urine UA NEGATIVE (Negative); Urobilinogen Urine UA 0.2 E.U./dL (0.2); pH Urine UA 6.5 (4.5-8.0)
[2023-02-28 13:45] LABS: Bacteria Urine None Seen; Culture Indicated Urine Cult Not Indicated; RBC Urine None Seen (0-5/HPF); Urine Comments Microscopic Normal; WBC Urine None Seen (0-5/HPF)
== END ==
PROVIDERS: PCP Student in an Organized Health Care Education/Training Program; Referring Provider Student in an Organized Health Care Education/Training Program; Visit Provider Student in an Organized Health Care Education/Training Program
DX: R30.0 Dysuria (principal)
CPT/HCPCS: 81001

== ENCOUNTER → 2023-03-21 09:13 | Outpatient (CLI) | payer MEDICARE, BC, SELFPAY ==
[2023-03-21 10:34] LABS: Appearance Urine UA CLEAR; Bilirubin Urine UA NEGATIVE (NEGATIVE); Color Urine UA YELLOW; Glucose Urine UA NEGATIVE (Negative); Ketones Urine UA NEGATIVE (NEGATIVE); Leukocyte Esterase Urine UA NEGATIVE (NEGATIVE); Nitrite Urine UA POSITIVE (Negative); Occult Blood Urine UA NEGATIVE (Negative); Protein Urine UA NEGATIVE (Negative); Specific Gravity Urine UA 1.025 (1.000-1.035); pH Urine UA 5.5 (4.5-8.0)
[2023-03-21 10:50] LABS: Bacteria Urine Occasional (0-1); RBC Urine None Seen (0-5/HPF); Squamous Epithelial Cell Urine 0-1 /HPF (0-5/HPF); WBC Urine 0-1/HPF (0-5/HPF)
[2023-03-21 10:51] LABS: Culture Indicated Urine Specimen Cultured
== END ==
PROVIDERS: PCP Student in an Organized Health Care Education/Training Program; Referring Provider Student in an Organized Health Care Education/Training Program; Visit Provider Student in an Organized Health Care Education/Training Program
DX: R30.0 Dysuria (principal)
CPT/HCPCS: 81001; 87086

== ENCOUNTER → 2023-03-28 11:02 | Outpatient (CLI) | payer MEDICARE, BC, SELFPAY ==
[2023-03-28 12:14] LABS: Appearance Urine UA CLEAR; Bilirubin Urine UA NEGATIVE (NEGATIVE); Color Urine UA YELLOW; Glucose Urine UA NEGATIVE (Negative); Ketones Urine UA NEGATIVE (NEGATIVE); Leukocyte Esterase Urine UA NEGATIVE (NEGATIVE); Nitrite Urine UA NEGATIVE (Negative); Occult Blood Urine UA NEGATIVE (Negative); Protein Urine UA NEGATIVE (Negative); Urobilinogen Urine UA 0.2 E.U./dL (0.2); pH Urine UA 7.5 (4.5-8.0)
[2023-03-28 12:21] LABS: Bacteria Urine None Seen; Culture Indicated Urine Cult Not Indicated; RBC Urine None Seen (0-5/HPF); WBC Urine None Seen (0-5/HPF)
== END ==
PROVIDERS: PCP Student in an Organized Health Care Education/Training Program; Referring Provider Student in an Organized Health Care Education/Training Program; Visit Provider Student in an Organized Health Care Education/Training Program
DX: R30.0 Dysuria (principal)
CPT/HCPCS: 81001

== ENCOUNTER → 2023-04-02 14:42 | Outpatient (CLI) | payer MEDICARE, BC, SELFPAY ==
[2023-04-02 15:35] LABS: Add Manual Diff / Slide Review NO; Basophils Absolute Auto 0 /uL (0-100); Basophils Percent Auto 0.5 % (0-2); Eosinophils Absolute Auto 0 /uL (0-450); Eosinophils Percent Auto 0.9 % (2-4); Hemoglobin 13.5 g/dL (13.5-17.5); Lymphocytes Absolute Auto 1900 /uL (1100-4500); Lymphocytes Percent Auto 36.9 % (25-40); Mean Corpuscular HGB Conc 34.7 % (30-36); Mean Corpuscular Hemoglobin 32.9 PG (26-34); Mean Corpuscular Volume 94.7 fL (80-100); Monocytes Absolute Auto 400 /uL (0-900); Monocytes Percent Auto 7.7 % (3-14); Neutrophils Absolute Auto 2700 /uL (1500-7000); Platelet Count 194 X10^3/uL (150-400); Red Blood Cell Count 4.12 X10^6/uL (4.5-5.9); Red Cell Distribution Width 12.6 % (11.6-14.8)
[2023-04-02 15:41] LABS: Alanine Aminotransferase 16 IU/L (<50); Albumin 3.7 g/dL (3.5-5.0); Albumin Globulin Ratio 1.4 (1.0-2.8); Alkaline Phosphatase 89 U/L (38-126); Aspartate Aminotransferase 23 IU/L (17-59); BUN Creatinine Ratio 17.2 (6-22); Bilirubin Total 0.4 mg/dL (0.2-1.3); Blood Urea Nitrogen 17 mg/dL (9-20); Calcium 8.7 mg/dL (8.4-10.2); Carbon Dioxide 25 mmol/L (22-32); Chloride 105 mmol/L (98-107); Estimated Glomerular Filt Rate > 60 mL/min (>60); Globulin 2.6 g/dL (1.7-4.1); Glucose 111 mg/dL (80-110); HEMOLYSIS < 15 (0-50); Potassium 3.8 mmol/L (3.4-5.1); Sodium 137 mmol/L (137-145); Total Protein 6.3 g/dL (6.3-8.2)
[2023-04-02 16:12] LABS: Prostate Specific Antigen 46.4 ng/mL (0.10-4.00)
== END ==
PROVIDERS: PCP Student in an Organized Health Care Education/Training Program; Referring Provider Internal Medicine; Visit Provider Internal Medicine
DX: E78.2 Mixed hyperlipidemia (principal); C61 Malignant neoplasm of prostate; I10 Essential (primary) hypertension
CPT/HCPCS: 36415; 80053; 84153; 85025

== ENCOUNTER → 2023-04-30 10:48 | Outpatient (CLI) | payer MEDICARE, BC, SELFPAY ==
[2023-04-30 11:29] LABS: Add Manual Diff / Slide Review NO; Basophils Absolute Auto 0 /uL (0-100); Basophils Percent Auto 0.4 % (0-2); Eosinophils Absolute Auto 0 /uL (0-450); Eosinophils Percent Auto 0.5 % (2-4); Hematocrit 42.7 % (41-53); Hemoglobin 14.7 g/dL (13.5-17.5); Lymphocytes Absolute Auto 1300 /uL (1100-4500); Mean Corpuscular HGB Conc 34.5 % (30-36); Mean Corpuscular Hemoglobin 32.7 PG (26-34); Mean Corpuscular Volume 94.9 fL (80-100); Monocytes Absolute Auto 400 /uL (0-900); Monocytes Percent Auto 9.3 % (3-14); Neutrophils Absolute Auto 3000 /uL (1500-7000); Neutrophils Percent Auto 61.8 % (50-75); Platelet Count 178 X10^3/uL (150-400); Red Cell Distribution Width 12.5 % (11.6-14.8); White Blood Cell Count 4.8 X10^3/uL (4.5-11.0)
[2023-04-30 11:47] LABS: Alanine Aminotransferase 14 IU/L (<50); Albumin 3.9 g/dL (3.5-5.0); Albumin Globulin Ratio 1.6 (1.0-2.8); Alkaline Phosphatase 93 U/L (38-126); Aspartate Aminotransferase 22 IU/L (17-59); Bilirubin Total 0.5 mg/dL (0.2-1.3); Blood Urea Nitrogen 13 mg/dL (9-20); C-Reactive Protein Quant 8.2 mg/dL (<1.0); Calcium 9.5 mg/dL (8.4-10.2); Carbon Dioxide 31 mmol/L (22-32); Chloride 99 mmol/L (98-107); Estimated Glomerular Filt Rate > 60 mL/min (>60); Globulin 2.5 g/dL (1.7-4.1); Glucose 86 mg/dL (80-110); HEMOLYSIS < 15 (0-50); Lipase 251 U/L (23-300); Potassium 4.8 mmol/L (3.4-5.1); Sodium 136 mmol/L (137-145); Total Protein 6.4 g/dL (6.3-8.2)
[2023-04-30 11:52] LABS: Erythrocyte Sedimentation Rate 13 MM/HR (0-15)
[2023-04-30 12:28] LABS: Appearance Urine UA CLEAR; Bilirubin Urine UA NEGATIVE (NEGATIVE); Color Urine UA YELLOW; Glucose Urine UA NEGATIVE (Negative); Ketones Urine UA NEGATIVE (NEGATIVE); Leukocyte Esterase Urine UA NEGATIVE (NEGATIVE); Nitrite Urine UA NEGATIVE (Negative); Occult Blood Urine UA NEGATIVE (Negative); Protein Urine UA NEGATIVE (Negative); Specific Gravity Urine UA <=1.005 (1.000-1.035); Urobilinogen Urine UA 0.2 E.U./dL (0.2); pH Urine UA 6.5 (4.5-8.0)
[2023-04-30 12:48] LABS: RBC Urine None Seen (0-5/HPF)
[2023-04-30 12:49] LABS: Bacteria Urine None Seen; Culture Indicated Urine Cult Not Indicated; Squamous Epithelial Cell Urine 0-1 /HPF (0-5/HPF); WBC Urine 0-1/HPF (0-5/HPF)
== END ==
PROVIDERS: PCP Pediatrics; Referring Provider Pediatrics; Visit Provider Pediatrics
DX: E78.2 Mixed hyperlipidemia (principal); I10 Essential (primary) hypertension; R10.9 Unspecified abdominal pain; R97.20 Elevated prostate specific antigen [PSA]; Z87.19 Personal history of other diseases of the digestive system
CPT/HCPCS: 36415; 80053; 81001; 83690; 85025; 85651; 86140

== ENCOUNTER → 2023-05-06 10:13 | Outpatient (CLI) | payer MEDICARE, BC, SELFPAY ==
--- NOTE | 2023-05-06 10:15 | DI.US.S_ITS ---
PROCEDURE: US ABDOMEN COMPLETE INDICATIONS: ABDOMEN PAIN. H/O UTI. R/O GB DISEASE AND DIVERTICULOSIS TECHNIQUE: Real-time scanning was performed of the abdominal and retroperitoneal organs, with image documentation. COMPARISON: [facility], CT, CT CHEST ABD PEL W CON, 09/13/2020, 14:53. FINDINGS: Liver: Liver is normal in size and homogeneous in echotexture. Small cyst measuring up to 1 cm is seen in the right and left hepatic lobes, corresponding to small hypodensities on the CT from 09/13/2020. Gallbladder: The gallbladder appears normal without gallstones or gallbladder wall thickening. There is no pericholecystic fluid. Sonographic Silva sign is negative. Biliary ducts: Intrahepatic bile ducts are non-dilated. Extrahepatic bile duct caliber measures 5 mm. Normal is 6-7 mm or less in diameter, or 10 mm or less post-cholecystectomy. Pancreas: No pancreatic ductal dilatation. A 1.2 x 0.9 x 1.0 cm hypoechoic lesion is seen in the anterior pancreatic head. This likely corresponds to a cyst on prior CT from 09/13/2020. Spleen: Spleen is normal in size and homogeneous in echotexture. Kidneys: Kidneys are normal in size and echotexture. Right kidney measures 9.7 cm long; left kidney measures 10.2 cm long. No hydronephrosis. No solid masses. Bilateral benign appearing renal cysts. Aorta: Visualized aorta is normal in caliber at less than 3 cm. Atherosclerotic plaque is noted. Iliacs: Proximal common iliac arteries are normal in caliber at less than 2.5 cm. IVC: Intrahepatic inferior vena cava is patent. Miscellaneous: No free abdominal fluid. IMPRESSION: 1. Normal gallbladder. No hydronephrosis. No acute sonographic abnormality is seen in the upper abdomen. 2. Hypoechoic 1.2 cm lesion in the pancreatic head is most likely a cyst, with probable correlate on prior CT. No pancreatic ductal dilatation. Consider follow-up pancreas protocol MRI or CT for further evaluation. 3. Benign-appearing hepatic and renal cysts. Approved by: Tevin Villar M.D. on 05/06/2023 at 12:33
== END ==
PROVIDERS: PCP Pediatrics; Referring Provider Pediatrics; Visit Provider Pediatrics
DX: K86.9 Disease of pancreas, unspecified (principal); K76.89 Other specified diseases of liver; N28.1 Cyst of kidney, acquired; R10.9 Unspecified abdominal pain
CPT/HCPCS: 76700

== ENCOUNTER → 2023-05-16 10:45 | Outpatient (CLI) | payer MEDICARE, BC, SELFPAY ==
--- NOTE | 2023-05-16 10:46 | DI.CT.S_ITS ---
PROCEDURE: CT ABDOMEN PANCREATIC PROTOCOL INDICATIONS: abnl pancreatic u/s TECHNIQUE: After the administration of intravenous contrast, 3 mm thick pancreatic-phase images acquired from the diaphragm to the iliac crests. 3 mm thick coronal and sagittal reformats were performed. For radiation dose reduction, the following was used: automated exposure control, adjustment of mA and/or kV according to patient size. COMPARISON: [facility], CT, CT CHEST ABD PEL W CON, 09/13/2020, 14:53. [facility], US, US ABDOMEN COMPLETE, 05/06/2023, 10:26. FINDINGS: Lung bases: No pleural effusion. Pancreas: No main ductal dilation. Several pancreatic cysts are present as on the [address], some are similar, others are mildly increased in size, at least 1 may be new. A cyst at the pancreatic body measuring 1.2 cm (2/30) likely corresponds to the finding on the recent abdominal ultrasound, and has increased in size previously measuring 0.8 cm. A 1.4 cm cyst is present at the uncinate process (/44) previously 1.1 cm. Other solid organs: A few scattered small hepatic hypodensities are present, too small to characterize, but not significantly changed. Gallbladder is unremarkable. Biliary system is non dilated. Spleen is normal in size and enhancement. No adrenal nodules. No hydronephrosis. Peritoneum and bowel: Small hiatal hernia. Visualized large and small bowel is non-dilated. No free air or substantial free fluid. Nodes and vessels: No retroperitoneal or mesenteric adenopathy by size criteria. Aorta and inferior vena cava are normal in size. Similar ectatic appearance of the celiac axis. Bones: Multilevel degenerative change of the visualized spine. IMPRESSION: Multiple pancreatic cysts are present as before. A 1.2 cm cyst at the pancreatic body likely corresponds to the finding from the recent abdominal ultrasound. These are nonspecific, could potentially represent side branch IPMNs or sequela of prior pancreatitis, other cystic neoplasms not excludable. Imaging follow-up can be obtained as clinically indicated, for example in 1-2 years or other interval at clinical discretion. Gastroenterology consultation may be helpful to direct further management. Dictated by: Tevin Forte M.D. on 05/17/2023 at 10:37 Approved by: Tevin Forte M.D. on 05/17/2023 at 11:20
== END ==
PROVIDERS: PCP Pediatrics; Referring Provider Pediatrics; Visit Provider Pediatrics
DX: K86.2 Cyst of pancreas (principal)
CPT/HCPCS: 74160; Q9967

== ENCOUNTER → 2023-05-30 12:30 | Outpatient (CLI) | payer MEDICARE, BC, SELFPAY ==
--- NOTE | 2023-05-30 12:32 | DI.CT.S_ITS ---
PROCEDURE: CT IVP A/P W/WO INDICATIONS: Chronic prostatitis TECHNIQUE: 5 mm thick noncontrast images acquired from the diaphragm to the symphysis pubis. After the administration of intravenous contrast, 5 mm thick images acquired from the diaphragm to the symphysis pubis after a 10-minute delay. 2 mm thick coronal and sagittal reformats were then performed of the kidneys and ureters. For radiation dose reduction, the following was used: automated exposure control, adjustment of mA and/or kV according to patient size. COMPARISON: [facility], CT, CT CHEST ABD PEL W CON, 09/13/2020, 14:53. FINDINGS: Image quality: Excellent. Lung bases: Lung bases are clear. Small hiatal hernia. Heart size is normal. Urinary system: Both kidneys are normal in size, without hydronephrosis. Punctate nonobstructing right kidney stone. No perinephric fat stranding. There is normal bilateral renal enhancement. Renal calyces appear normal in morphology when filled with contrast. Opacified portions of both ureters demonstrate normal caliber. Bladder wall thickness is normal. No calcified bladder stones. Other solid organs: Liver is normal in size and enhancement. Small hepatic cysts. Gallbladder is unremarkable. Biliary system is non dilated. Small pancreatic cysts. Pancreatic body cyst measuring 0.9 cm, (4/46), remotely 0.7 cm in 2020. Cyst in the head of the pancreas measuring 0.9 cm, (4/57), previously 0.7 cm. Cyst in the uncinate process measuring 1.3 cm, (4/72), previously 1.1 cm. Spleen is normal in size and enhancement. Multiple small bilateral renal cysts. No ureteral filling defect. No adrenal nodules. Peritoneum and bowel: Bowel loops demonstrate normal wall thickness and caliber. Diverticulosis. No free fluid or air. Nodes and vessels: No retroperitoneal or mesenteric adenopathy by size criteria. Aorta and inferior vena cava are normal in size. Abdominal wall: No ventral hernias. Pelvis: No pathologic free pelvic fluid. Prostate brachytherapy seeds. No inguinal hernias or adenopathy. Small bilateral hydroceles. Bones: No suspicious bony lesions. Multilevel DDD. No vertebral body compression fractures. IMPRESSION: 1. No pelvic fluid collection. Prostate brachytherapy seeds. 2. Diverticulosis. No diverticulitis. 3. No adenopathy. 4. Small hiatal hernia. Dictated by: Mohinder Loera M.D. on 05/30/2023 at 16:27 Approved by: Mohinder Loera M.D. on 05/30/2023 at 16:39
[2023-05-30 13:15] LABS: Estimated Glomerular Filt Rate 53 mL/min (>60)
[2023-05-30 13:46] LABS: Prostate Specific Antigen 36.4 ng/mL (0.10-4.00)
== END ==
PROVIDERS: Radiology Diagnostic Radiology; PCP Pediatrics; Referring Provider Urology; Visit Provider Urology
DX: R97.20 Elevated prostate specific antigen [PSA] (principal); N41.1 Chronic prostatitis; K76.89 Other specified diseases of liver; K86.2 Cyst of pancreas; N28.1 Cyst of kidney, acquired; K57.90 Diverticulosis of intestine, part unspecified, without perforation or abscess without bleeding; K44.9 Diaphragmatic hernia without obstruction or gangrene; Z85.46 Personal history of malignant neoplasm of prostate
CPT/HCPCS: 36415; 74178; 82565; 84153; Q9967

== ENCOUNTER → 2023-07-09 11:49 | Outpatient (CLI) | payer MEDICARE, BC, SELFPAY ==
--- NOTE | 2023-07-09 11:50 | DI.RAD.S_ITS ---
Bone Density Report Name: RACHELLE ESTEVEZ Age: 88 Sex: Male Ethnicity: White Date of : 1935 Indication: osteopenia; Referring Provider: FLORA SUE Study: Bone densitometry was performed. Exam Date: July 09, 2023 Accession number: [id number] Bone Density: Region BMD T-score Z-score Classification AP Spine(L1-L4) 1.005 -0.4 0.5 Normal Femoral Neck (Left) 0.567 -2.5 -1.0 Osteoporosis Total Hip (Left) 0.683 -2.1 -1.1 Osteopenia Femoral Neck (Right) 0.614 -2.1 -0.6 Osteopenia Total Hip (Right) 0.697 -2.0 -1.0 Osteopenia Total Hip Mean 0.690 -2.1 -1.1 Osteopenia World Health Organization criteria for BMD impression classify patients as: Normal (T-score at or above -1.0), Osteopenia (T-score between -1.0 and -2.5), or Osteoporosis (T-score at or below -2.5). 10-year Fracture Risk: FRAX not reported because: Some T-score for Spine Total or Hip Total or Femoral Neck at or below -2.5 Previous Exams: -- Region Exam Age BMD T-score BMD Change BMD Change Date g/cm2 vs Baseline vs Previous -- AP Spine (L1-L4) 07/09/2023 88 1.005 -0.4 -0.097 (-8.8%)# -0.097 (-8.8%)# 04/16/2013 77 1.102 0.5 Total Hip(Left) 07/09/2023 88 0.683 -2.1 -0.117 (-14.7%)# -0.117 (-14.7%)# 04/16/2013 77 0.800 -1.2 Total Hip(Right) 07/09/2023 88 0.697 -2.0 -0.145 (-17.2%)# -0.145 (-17.2%)# 04/16/2013 77 0.841 -0.8 -- *Denotes significance at 95% confidence level, LSC for AP Spine = 0.022 g/cm2, LSC for Total Hip = 0.027 g/cm2 # Denotes dissimilar scan types or analysis methods Impression: The patient has osteoporosis, based on the Left Femoral Neck T-score. No significant bone loss was observed. Discussion: INCREASED RISK OF FRACTURE. BONE DENSITY IS UNDESIRABLY LOW AT ONE OR MORE SKELETAL SITES, CONSISTENT WITH OSTEOPOROSIS. This patient's lowest T-score meets the World Health Organization's (WHO) criteria for osteoporosis at one or more sites (T-score -2.5 or below). In untreated patients, the risk of osteoporotic fracture increases approximately two-fold for each 1.0 SD decrease in T-score. Low bone density is not the only risk factor for fracture; also consider factors such as patient's age, frailty or poor health, risk of falling, risk of injury, previous osteoporotic fracture, family history of osteoporosis, cigarette smoking, low body weight, etc. Not everyone with low bone mineral density has osteoporosis; osteomalacia and other metabolic bone disorders should also be considered. Patients who have osteoporosis should be evaluated for specific diseases and conditions (secondary causes) that may cause or contribute to bone loss. The National Osteoporosis Foundation (NOF) recommends pharmacologic intervention for men with BMD at this level (a T-score of -2.5 or below). The patient should follow a healthful lifestyle (good nutrition with adequate calcium and vitamin D, and appropriate weight-bearing exercise). Follow-Up: Consider repeating this study in 2 years to reassess this patient's status, or sooner if there is some new clinical indication. Reported by: HAKAN CORDERO M.D. on 07/09/2023 12:22:00 PM.
== END ==
PROVIDERS: PCP Pediatrics; Referring Provider Pediatrics; Visit Provider Pediatrics
DX: M81.0 Age-related osteoporosis without current pathological fracture (principal)
CPT/HCPCS: 77080

== ENCOUNTER → 2023-07-12 08:15 | Outpatient (CLI) | payer MEDICARE, BC, SELFPAY ==
[2023-07-12 09:05] LABS: Add Manual Diff / Slide Review NO; Basophils Absolute Auto 0 /uL (0-100); Basophils Percent Auto 0.5 % (0-2); Eosinophils Absolute Auto 0 /uL (0-450); Eosinophils Percent Auto 0.6 % (2-4); Hematocrit 39.3 % (41-53); Hemoglobin 13.3 g/dL (13.5-17.5); Lymphocytes Absolute Auto 1400 /uL (1100-4500); Lymphocytes Percent Auto 32.7 % (25-40); Mean Corpuscular HGB Conc 33.9 % (30-36); Mean Corpuscular Volume 97.5 fL (80-100); Monocytes Absolute Auto 400 /uL (0-900); Monocytes Percent Auto 9.2 % (3-14); Neutrophils Absolute Auto 2400 /uL (1500-7000); Platelet Count 179 X10^3/uL (150-400); Red Blood Cell Count 4.03 X10^6/uL (4.5-5.9); Red Cell Distribution Width 13.7 % (11.6-14.8); White Blood Cell Count 4.2 X10^3/uL (4.5-11.0)
[2023-07-12 09:47] LABS: Alanine Aminotransferase 17 IU/L (<50); Albumin 3.7 g/dL (3.5-5.0); Albumin Globulin Ratio 1.6 (1.0-2.8); Alkaline Phosphatase 72 U/L (38-126); Aspartate Aminotransferase 24 IU/L (17-59); BUN Creatinine Ratio 13.1 (6-22); Bilirubin Total 0.6 mg/dL (0.2-1.3); Blood Urea Nitrogen 13 mg/dL (9-20); Calcium 9.3 mg/dL (8.4-10.2); Carbon Dioxide 28 mmol/L (22-32); Chloride 105 mmol/L (98-107); Cholesterol 174 mg/dL (140-199); Estimated Glomerular Filt Rate > 60 mL/min (>60); Globulin 2.3 g/dL (1.7-4.1); Glucose 87 mg/dL (80-110); HDL Cholesterol 76 mg/dL (40-60); HEMOLYSIS < 15 (0-50); LDL Cholesterol Calculated 82 mg/dL (<100); Potassium 4.1 mmol/L (3.4-5.1); Sodium 138 mmol/L (137-145); Triglycerides 82 mg/dL (35-150)
[2023-07-12 10:02] LABS: Vitamin D 25 Hydroxy (D3) 58.7 ng/mL (30.0-100.0)
[2023-07-12 10:15] LABS: Prostate Specific Antigen 56.6 ng/mL (0.10-4.00)
== END ==
PROVIDERS: PCP Pediatrics; Referring Provider Pediatrics; Visit Provider Pediatrics
DX: E78.2 Mixed hyperlipidemia (principal); R97.20 Elevated prostate specific antigen [PSA]; I10 Essential (primary) hypertension; K22.4 Dyskinesia of esophagus; R63.4 Abnormal weight loss; Z87.19 Personal history of other diseases of the digestive system; Z85.46 Personal history of malignant neoplasm of prostate
CPT/HCPCS: 36415; 80053; 80061; 82306; 84153; 85025

== ENCOUNTER → 2023-07-17 13:17 | Outpatient (CLI) | payer MEDICARE, BC, SELFPAY ==
[2023-07-17 15:37] LABS: C-Reactive Protein Quant < 0.5 mg/dL (<1.0)
== END ==
PROVIDERS: PCP Pediatrics; Referring Provider Pediatrics; Visit Provider Pediatrics
DX: R79.82 Elevated C-reactive protein (CRP) (principal)
CPT/HCPCS: 36415; 86140

== ENCOUNTER → 2023-09-10 14:11 | Outpatient (CLI) | payer MEDICARE, BC, SELFPAY ==
[2023-09-10 14:46] LABS: Add Manual Diff / Slide Review NO; Basophils Absolute Auto 0 /uL (0-100); Basophils Percent Auto 0.6 % (0-2); Eosinophils Absolute Auto 0 /uL (0-450); Eosinophils Percent Auto 0.5 % (2-4); Hemoglobin 13.8 g/dL (13.5-17.5); Lymphocytes Absolute Auto 2100 /uL (1100-4500); Lymphocytes Percent Auto 37.6 % (25-40); Mean Corpuscular HGB Conc 34.5 % (30-36); Mean Corpuscular Hemoglobin 32.9 PG (26-34); Mean Corpuscular Volume 95.5 fL (80-100); Monocytes Absolute Auto 400 /uL (0-900); Monocytes Percent Auto 7.7 % (3-14); Neutrophils Absolute Auto 3000 /uL (1500-7000); Neutrophils Percent Auto 53.6 % (50-75); Platelet Count 183 X10^3/uL (150-400); Red Blood Cell Count 4.19 X10^6/uL (4.5-5.9); Red Cell Distribution Width 12.1 % (11.6-14.8); White Blood Cell Count 5.5 X10^3/uL (4.5-11.0)
[2023-09-10 15:18] LABS: BUN Creatinine Ratio 19.4 (6-22); Blood Urea Nitrogen 18 mg/dL (9-20); Calcium 9.1 mg/dL (8.4-10.2); Carbon Dioxide 29 mmol/L (22-32); Chloride 101 mmol/L (98-107); Estimated Glomerular Filt Rate > 60 mL/min (>60); Glucose 102 mg/dL (80-110); HEMOLYSIS < 15 (0-50); Potassium 4.1 mmol/L (3.4-5.1); Sodium 136 mmol/L (137-145)
[2023-09-10 15:44] LABS: Prostate Specific Antigen 37.5 ng/mL (0.10-4.00)
== END ==
PROVIDERS: PCP Pediatrics; Referring Provider Urology; Visit Provider Urology
DX: Z85.46 Personal history of malignant neoplasm of prostate (principal)
CPT/HCPCS: 36415; 80048; 84153; 85025

== ENCOUNTER → 2023-11-01 07:59 | Outpatient (CLI) | payer MEDICARE, BC, SELFPAY ==
[2023-11-01 09:24] LABS: Add Manual Diff / Slide Review NO; Basophils Absolute Auto 0 /uL (0-100); Basophils Percent Auto 0.4 % (0-2); Eosinophils Absolute Auto 0 /uL (0-450); Eosinophils Percent Auto 0.6 % (2-4); Hematocrit 41.4 % (41-53); Lymphocytes Absolute Auto 1700 /uL (1100-4500); Lymphocytes Percent Auto 39.3 % (25-40); Mean Corpuscular HGB Conc 33.9 % (30-36); Mean Corpuscular Hemoglobin 32.7 PG (26-34); Mean Corpuscular Volume 96.4 fL (80-100); Monocytes Absolute Auto 400 /uL (0-900); Monocytes Percent Auto 9.8 % (3-14); Neutrophils Absolute Auto 2100 /uL (1500-7000); Neutrophils Percent Auto 49.9 % (50-75); Platelet Count 202 X10^3/uL (150-400); Red Cell Distribution Width 12.2 % (11.6-14.8); White Blood Cell Count 4.3 X10^3/uL (4.5-11.0)
[2023-11-01 09:45] LABS: Alanine Aminotransferase 14 IU/L (<50); Albumin 3.8 g/dL (3.5-5.0); Albumin Globulin Ratio 1.6 (1.0-2.8); Alkaline Phosphatase 76 U/L (38-126); Aspartate Aminotransferase 23 IU/L (17-59); BUN Creatinine Ratio 13.3 (6-22); Bilirubin Total 0.7 mg/dL (0.2-1.3); Blood Urea Nitrogen 13 mg/dL (9-20); Calcium 9.5 mg/dL (8.4-10.2); Carbon Dioxide 28 mmol/L (22-32); Chloride 103 mmol/L (98-107); Cholesterol 150 mg/dL (140-199); Estimated Glomerular Filt Rate > 60 mL/min (>60); Globulin 2.4 g/dL (1.7-4.1); Glucose 85 mg/dL (80-110); HDL Cholesterol 66 mg/dL (40-60); LDL Cholesterol Calculated 66 mg/dL (<100); Potassium 4.1 mmol/L (3.4-5.1); Sodium 137 mmol/L (137-145); Total Protein 6.2 g/dL (6.3-8.2); Triglycerides 92 mg/dL (35-150)
[2023-11-01 09:49] LABS: HEMOLYSIS < 15 (0-50)
[2023-11-01 15:30] LABS: Prostate Specific Antigen Scrn 58.1 ng/mL (0.1-4.0)
== END ==
PROVIDERS: PCP Family Medicine; Referring Provider Family Medicine; Visit Provider Family Medicine
DX: E78.2 Mixed hyperlipidemia (principal); Z12.5 Encounter for screening for malignant neoplasm of prostate; N41.1 Chronic prostatitis
CPT/HCPCS: 36415; 80053; 80061; 85025; G0103

== ENCOUNTER → 2024-05-19 10:10 | Outpatient (CLI) | payer MEDICARE, BC, SELFPAY | PROVIDERS: PCP Family Medicine; Referring Provider Specialist; Visit Provider Specialist | DX: R97.20 Elevated prostate specific antigen [PSA] (principal) | CPT/HCPCS: 36415; 84153 ==

== ENCOUNTER → 2024-08-19 14:28 | Outpatient (CLI) | payer MEDICARE, BC, SELFPAY ==
[2024-08-19 22:32] LABS: Prostate Specific Antigen 42.5 ng/mL (0.10-4.00)
== END ==
PROVIDERS: PCP Family Medicine; Referring Provider Urology; Visit Provider Urology
DX: R97.20 Elevated prostate specific antigen [PSA] (principal); R39.9 Unspecified symptoms and signs involving the genitourinary system
CPT/HCPCS: 36415; 84153

== ENCOUNTER → 2024-12-19 09:32 | Outpatient (CLI) | payer MEDICARE, BC, SELFPAY ==
[2024-12-19 10:47] LABS: Bacteria Urine Occasional (0-1); Culture Indicated Urine Cult Not Indicated; RBC Urine 5-10/HPF (0-5/HPF); Squamous Epithelial Cell Urine 0-1 /HPF (0-5/HPF); Urine Volume 10mL (spun); WBC Urine 0-1/HPF (0-5/HPF)
[2024-12-19 11:37] LABS: Prostate Specific Antigen 19.6 ng/mL (0.10-4.00)
== END ==
PROVIDERS: PCP Family Medicine; Referring Provider Urology; Visit Provider Urology
DX: C61 Malignant neoplasm of prostate (principal); R97.21 Rising PSA following treatment for malignant neoplasm of prostate; R30.0 Dysuria
CPT/HCPCS: 36415; 81015; 84153

== ENCOUNTER → 2024-12-24 10:54 | Outpatient (CLI) | payer MEDICARE, BC, SELFPAY | PROVIDERS: PCP Family Medicine; Visit Provider Urology | DX: N40.1 Benign prostatic hyperplasia with lower urinary tract symptoms (principal) | CPT/HCPCS: 87086 ==

== ENCOUNTER → 2025-01-01 10:41 | Outpatient (CLI) | payer MEDICARE, BC, SELFPAY ==
[2025-01-01 11:42] LABS: Estimated Glomerular Filt Rate > 60 mL/min (>60)
== END ==
PROVIDERS: Radiology Diagnostic Radiology; PCP Family Medicine
DX: R31.29 Other microscopic hematuria (principal)
CPT/HCPCS: 36415; 82565

== ENCOUNTER → 2025-01-04 12:03 | Outpatient (CLI) | payer MEDICARE, BC, SELFPAY ==
--- NOTE | 2025-01-04 12:05 | DI.CT.S_ITS ---
PROCEDURE: CT IVP A/P W/WO INDICATIONS: microscopic hematuria, eval upper tracts. TECHNIQUE: Optional 5 mm thick noncontrast images acquired from the diaphragm to the symphysis pubis. After the administration of intravenous contrast, 5 mm thick images acquired from the diaphragm to the symphysis pubis after a 10-minute delay. 2 mm thick coronal and sagittal reformats were then performed of the kidneys and ureters. For radiation dose reduction, the following was used: automated exposure control, adjustment of mA and/or kV according to patient size. COMPARISON: [facility], CT, CT ABDOMEN PANCREATIC PROTOCOL, 05/16/2023, 11:13. [facility], CT, CT IVP A/P W/WO, 05/30/2023, 13:23. FINDINGS: Image quality: Diagnostic. Kidneys and Ureters: Both kidneys are normal in size, without hydronephrosis. Punctate, nonobstructing right-sided nephrolithiasis. No perinephric fat stranding. There is normal bilateral renal enhancement. Renal calyces appear normal in morphology when filled with contrast. Opacified portions of both ureters demonstrate normal caliber Bladder: Bladder wall thickness is normal. No calcified bladder stones. OTHER: Lower chest: Moderate hiatal hernia. Liver: Hepatic cyst at the liver dome measuring 1.2 cm. Additional subcentimeter hypoattenuating lesions, too small to characterize by CT. Gallbladder: No radiopaque gallstones or wall thickening. Biliary ducts: No biliary dilation. Pancreas: Increased size of the pancreatic cystic lesion in the pancreatic body, measuring 1.5 cm, previously 1.2 cm. Additional smaller pancreatic cystic lesions are present, similar to prior. No pancreatic ductal dilation. Spleen: Size is within normal limits. Adrenal Glands: No adrenal nodules. Stomach and Bowel: Normal colonic caliber, without significant wall thickening. Colonic diverticulosis without evidence of diverticulitis. Peritoneum: No abnormal intraperitoneal fluid. No free air. Ventral Wall: No hernia. Abdominal Nodes: No retroperitoneal or mesenteric adenopathy by size criteria. Vessels: Aorta and inferior vena cava are normal in size. Ectatic celiac axis measuring 1.3 cm, unchanged from prior. PELVIS: Pelvic Organs: Prostate is small, containing brachytherapy clips. Small testicular hydroceles. Pelvic Nodes: No enlarged lymph nodes. Miscellaneous: No inguinal hernias are seen. Bones: No aggressive osseous abnormality. IMPRESSION: Punctate, nonobstructing right-sided nephrolithiasis. Otherwise, no filling defects within the opacified renal collecting system or ureters. Growing pancreatic cystic lesion measuring 1.5 cm, previously 1.2 cm. 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 Small testicular hydroceles. Dictated by: Tyrell Peres M.D. on 01/04/2025 at 13:36 Approved by: Tyrell Peres M.D. on 01/04/2025 at 13:41
== END ==
PROVIDERS: PCP Family Medicine; Referring Provider Urology; Visit Provider Urology
DX: N20.0 Calculus of kidney (principal); R31.29 Other microscopic hematuria; K44.9 Diaphragmatic hernia without obstruction or gangrene; K76.89 Other specified diseases of liver; K86.2 Cyst of pancreas; K57.90 Diverticulosis of intestine, part unspecified, without perforation or abscess without bleeding; N43.3 Hydrocele, unspecified
CPT/HCPCS: 74178; Q9967

== ENCOUNTER → 2025-03-30 15:10 | Outpatient (CLI) | payer MEDICARE, BC, SELFPAY ==
[2025-03-30 16:58] LABS: Prostate Specific Antigen 28.6 ng/mL (0.10-4.00)
== END ==
PROVIDERS: PCP Family Medicine; Referring Provider Urology; Visit Provider Urology
DX: C61 Malignant neoplasm of prostate (principal); R97.21 Rising PSA following treatment for malignant neoplasm of prostate
CPT/HCPCS: 36415; 84153

== ENCOUNTER → 2025-09-22 14:14 | Outpatient (CLI) | payer MEDICARE, BC, SELFPAY ==
[2025-09-22 16:04] LABS: Prostate Specific Antigen 15.0 ng/mL (0.10-4.00)
== END ==
PROVIDERS: PCP Family Medicine; Referring Provider Urology; Visit Provider Urology
DX: C61 Malignant neoplasm of prostate (principal); R97.21 Rising PSA following treatment for malignant neoplasm of prostate
CPT/HCPCS: 36415; 84153

== ENCOUNTER 2025-11-11 05:11 | Emergency (ER) | payer MEDICARE, BC, SELFPAY ==
--- OUTSIDE RECORDS SUMMARY | 2025-11-11 05:18 | XMS_ITS | Clinical Summary ---
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 Overview (2022): Legacy Name: Old SC (myocardial infarction); Social History Tobacco Use Types Packs/Day Years Used Date Smoking Tobacco: Never Assessed Sex and Gender Information Value Date Recorded Sex Assigned at Not on file Legal Sex Male 2:16 AM PDT Gender Identity Not on file Sexual Orientation Not on file Last Filed Vital Signs Vital Sign Reading Time Taken Comments Blood Pressure - - Pulse 75 06/03/2019 1:21 PM PDT Temperature - - Respiratory Rate - - Oxygen Saturation 98% 06/03/2019 1:21 PM PDT Inhaled Oxygen Concentration - - Weight 61.2 kg (135 lb) 06/03/2019 1:21 PM PDT Height 170.2 cm (5' 7) 06/03/2019 1:21 PM PDT Body Mass Index 21.14 06/03/2019 1:21 PM PDT Plan of Treatment Not on file Care Teams Diesel Bus Mechanic Relationship Specialty Start Date End Date Joshua Kyle MD [address] [place] [address] [address] [place] [address] [facility] - General 06/09/19
[2025-11-11 05:24] VITALS: BP 192/99; PULSE 97; RESP 16; TEMP 36.4; O2SAT 100; BMI 20.3
[2025-11-11] MEDS: LIDOCAINE 2% (GLYDO) 6 ML GEL TOP (06:00)
[2025-11-11 06:03] LABS: Appearance Urine UA CLEAR; Bilirubin Urine UA NEGATIVE (NEGATIVE); Color Urine UA YELLOW; Glucose Urine UA NEGATIVE (Negative); Ketones Urine UA NEGATIVE (NEGATIVE); Leukocyte Esterase Urine UA NEGATIVE (NEGATIVE); Nitrite Urine UA NEGATIVE (Negative); Occult Blood Urine UA NEGATIVE (Negative); Protein Urine UA NEGATIVE (Negative); Specific Gravity Urine UA 1.010 (1.000-1.035); Urobilinogen Urine UA 0.2 E.U./dL (0.2); pH Urine UA 6.5 (4.5-8.0)
[2025-11-11 06:09] LABS: Culture Indicated Urine Cult Not Indicated
--- NOTE | 2025-11-11 06:15 | ED.MALEGU ---
HPI - Male Genitourinary General Chief complaint: Urogenital-Male Stated complaint: Urinary Symptoms Time Seen by Provider: 11/11/25 05:21 Source: patient Mode of arrival: Ambulatory History of Present Illness HPI Narrative: 89 year old male who added to the ED for abdominal distention and inability to urinate. Past medical history significant for prostate cancer, heart failure with reduced ejection fraction hypertension, hyperlipidemia. Patient states he was able to urinate around midnight tonight however he has nocturia and typically has to get up in the middle of the night to urinate multiple times. Around 1:00 a.m. he was unable to urinate and has since been unable to relieve his bladder which prompted patient to present to the ED. He denies any fevers, chills, nausea, vomiting. No urgency, hematuria, dysuria. Related Data Home Medications ?Medication ?Instructions ?Recorded ?Confirmed aspirin 81 mg chewable tablet 81 mg PO QDAY ##30 06/13/16 09/30/25 multivitamin (Multiple Vitamins 1 tab PO QDAY #0 tabs 06/13/16 09/30/25 tablet) biotin 5,000 mcg disintegrating 5,000 mcg PO DAILY 09/02/19 09/30/25 tablet cholecalciferol (vitamin D3) 50 2,000 unit PO DAILY 09/02/19 09/30/25 mcg (2,000 unit) capsule acetaminophen 500 mg tablet 1,000 mg PO BID PRN 11/09/20 09/30/25 calcium ER 600 mg (as carb,cit)-D3 1 tab PO DAILY 08/04/25 09/30/25 12.5 mcg (500 unit) tablet, ext.rel (Citracal-D3 Slow Release) saw santiago 1 cap PO DAILY 08/04/25 09/30/25 Previous Rx's ?Medication ?Instructions ?Recorded lisinopril 20 mg tablet 20 mg PO DAILY #90 tabs 07/22/25 tamsulosin 0.4 mg capsule 0.4 mg PO ONCE PM #90 caps 08/25/25 Allergies Allergy/AdvReac Type Severity Reaction Status Date / Time levofloxacin AdvReac Intermediate Anxiety/visual Verified 11/11/25 05:23 hallucinations phenazopyridine (From AZO AdvReac Hallucinati Verified 11/11/25 05:23 Standard) ng Review of Systems Review of Systems Narrative: See HPI. Patient History Medical History Toe pain, bilateral Biochemically recurrent malignant neoplasm of prostate Weight loss History of diverticulosis Post herpetic neuralgia Aortic stenosis, moderate Staphylococcus aureus bacteremia Discitis of lumbar region Facet arthropathy, lumbar Heart disease Chronic back pain Actinic keratosis (~1979) Measles GI bleeding (1999) Hypertension (1998) Prostate cancer (1996) Melanoma (2011) Migraines (1989) Non-ST elevation (NSTEMI) myocardial infarction (06/13/16) Surgical History Hx of cataract surgery Anesthesia History of prostate surgery (1996) History of melanoma excision (2011) Status post hernia repair (2004) Status post hernia repair (1995) Family History Brother Age: 86 Parkinson's disease Father Parkinson's disease Mother Aneurysm Social History marital status: unknown household members: significant other occupational status: previously employed Smoking Status: Never smoker alcohol intake: current (1 drink daily ) substance use type: does not use and marijuana (gave it up in the 70s) Smoking Status: Never smoker alcohol intake frequency: 0-2 drinks per day Exam Narrative Exam Narrative: See HPI: Afebrile, hypertensive, other vitals normal. Gen: Well-developed, elderly man in no acute distress. Cards: Regular, no murmurs, rubs or gallops. Pulm: No increased work of breathing. Clear to auscultation bilaterally. Abd: Soft, minimally distended in the lower abdomen with minimal tender to palpation in the suprapubic region. Ext: No peripheral edema in bilateral lower extremity. Neuro: A&O x3, cranial nerves grossly intact, moving all 4 extremities, normal gait. Psych: Appropriate. Initial Vital Signs Initial Vital Signs: Vital Signs Temperature 97.6 F 11/11/25 05:24 Pulse Rate 97 H 11/11/25 05:24 Respiratory Rate 16 11/11/25 05:24 Blood Pressure 192/99 H 11/11/25 05:24 Pulse Oximetry 100 11/11/25 05:24 Oxygen Delivery Method Room Air 11/11/25 05:24 Course Orders Ordered: ED Orders 11/11/25 05:50 Urinalysis and Microscopic Stat Discontinued Medications Lidocaine HCl (Lidocaine 2% (Glydo) 6 Ml Gel) 6 ml TOP NOW ONE Stop: 11/11/25 05:29 Vital Signs Vital signs: Vital Signs - 8 hr 11/11/25 05:24 Temperature 97.6 F Pulse Rate 97 H Respiratory Rate 16 Blood Pressure 192/99 H Pulse Oximetry 100 Oxygen Delivery Method Room Air MDM - Male Genitourinary Lab Data Labs: Lab Results 11/11/25 Range/Units 05:50 Urine Color Yellow Urine Appearance Clear Urine pH 6.5 (4.5-8.0) Ur Specific [place] 1.010 (1.000-1.035) Urine Protein Negative (Negative) Urine Glucose (UA) Negative (Negative) g/dL Urine Ketones Negative (NEGATIVE) Urine Occult Blood Negative (Negative) Urine Nitrate Negative (Negative) Urine Bilirubin Negative (NEGATIVE) Urine Urobilinogen 0.2 (0.2) E.U./dL Ur Leukocyte Esterase Negative (NEGATIVE) Urine RBC None seen (0-5/HPF) Urine WBC None seen (0-5/HPF) Ur Squamous Epith Cells None seen (0-5/HPF) Urine Bacteria None seen (None) Ur Culture Indicated? Cult not indicated Vol Urine Centrifuged 10ml (spun) MDM Narrative Medical decision making narrative: Patient is a 89-year-old man with a history of nocturia on Flomax, managed by Dr. Brennan, presents with acute urinary retention. Differential diagnosis: Urinary tract infection, BPH, prostate cancer, urethral stricture, bladder calculi, neurogenic bladder, other. Labs: Urinalysis not consistent with urinary tract infection.. Imaging: Bedside bladder scan revealed 600 cc of urine. EKG: Not indicated. ED course: Patient arrived to the ED afebrile, hypertensive, with all other vitals normal. Physical exam findings significant for suprapubic distention and tenderness to palpation. Bedside bladder are scan revealed 600 cc of urine. Rutherford catheter was placed draining 600 cc of clear yellow urine with resultant urinalysis negative for urinary tract infection. Patient was given education on how to manage Rutherford catheter and informed to follow up with Dr. Brennan in 1 week for voiding trial. Discharge Plan Departure Patient Disposition: Home Clinical Impression: Acute urinary retention Activity Restrictions/Additional Instructions: You were seen in the emergency department for abdominal distention. In the ER: -- Bladder scan revealed 700 cc of urine in your bladder -- A Rutherford was placed draining 600 cc of urine -- Urinalysis was not consistent with a urinary tract infection Plan: -- Maintain Rutherford for bladder decompression -- Continue taking Flomax -- Arrange follow up with urologist, Dr. Brennan, in approximately 1 week for voiding trial Return to the ER if you develop any worsening symptoms, any issues with Rutherford catheter drainage or any other concerns. Have a very Merry [place]! - Dr. Saavedra Prescriptions: No Action aspirin 81 MG tablet,chewable 81 mg PO QDAY Qty: 30 multivitamin [Multiple Vitamins] 1 EACH tablet 1 tab PO QDAY Qty: 0 lisinopril 20 mg tablet 20 mg PO DAILY Qty: 90 1RF calcium carb, citrate-vit D3 [Citracal-D3 Slow Release] 600 mg-12.5 mcg (500 unit) tablet extended release 1 tab PO DAILY tamsulosin 0.4 mg capsule 0.4 mg PO ONCE PM Qty: 90 3RF acetaminophen 500 mg tablet 1,000 mg PO BID PRN cholecalciferol (vitamin D3) 2,000 unit capsule 2,000 unit PO DAILY biotin 5,000 mcg tablet,disintegrating 5,000 mcg PO DAILY saw palmetto 1 cap PO DAILY Referrals: Tamara Torres DO [Primary Care Provider, Family Practice] Stand Alone Forms: Patient Portal/API
[2025-11-11 07:16] VITALS: BP 148/68; PULSE 68; RESP 16
== END 2025-11-11 07:22 | disposition home or self-care (01) ==
PROVIDERS: Emergency Provider Student in an Organized Health Care Education/Training Program; PCP Family Medicine
DX: N39.0 Urinary tract infection, site not specified (principal); R14.0 Abdominal distension (gaseous)
CPT/HCPCS: 51798; 81001; 99283